=== PATIENT | female | born 1980 | race African-American/Black ===

== ENCOUNTER 2017-01-09 11:15 | Emergency (ER) | payer MEDICAID ==
[2017-01-09] MEDS ORDERED: Sodium Chloride 0.9% 2.5 ML Syringe FLUSH PRN (11:46)
[2017-01-09] MEDS ORDERED: Sodium Chloride 0.9% 10 ML Syringe FLUSH PRN (11:46)
[2017-01-09] MEDS ORDERED: Sodium Chloride 0.9% 1,000 ML IV ONE (11:47)
[2017-01-09] MEDS ORDERED: Ketorolac 30 MG/ML SDV IVPUSH ONE (11:47)
[2017-01-09 11:48] VITALS: BP 156/79
--- NOTE | 2017-01-09 11:52 | EDM.PDOC ---
ED HPI GENERAL MEDICAL PROBLEM - General Chief Complaint: Abdominal Pain Stated Complaint: RIGHT SIDE PAIN Time Seen by Provider: 01/09/17 11:24 - History of Present Illness INITIAL COMMENTS - FREE TEXT/NARRATIVE: HISTORY AND PHYSICAL: History of present illness: The patient is a 36-year-old female with a history of kidney stones in the past and no gynecologic or GI history and presents with 2 days of right-sided abdominal and flank pain. The patient states it started gradually more and her flank area and then started radiating to her right upper and right lower abdomen. She started having concurrent vaginal spotting despite having a period on December 29. She states her periods are regular but the one on December 29 was search director than usual. She has no history of ovarian cysts STDs or STD risks and is not currently sexually active. She states she does have discomfort at the end of urination but no hematuria and the pain she describes as more of a cramping squeezing like. She also says that she has had some associated epigastric burning which she thought was some heartburn and she has tried [id number] ibuprofen and Erika-Vinton and Pepto-Bismol over the last 2 days without relief. She says she feels hot and sweaty but she does not have a temperature. She has no chest pain or shortness of breath and no upper respiratory symptoms. The patient denies any food intolerance in the past but does also state that she has had loose stools over the last several days without black or bloody stools. She does have a history of diarrhea and her medical history on the computer but denies GI history per se The patient tells nursing that she had a nuvaring in place which she removed 2 days ago without complication--she says that she was not scheduled to remove it until the end of this month but opted to remove it early because she had had a dark colored menstrual cycle earlier in the month and she started having this pain and she thought that potentially it was causing an infection. She has had no vaginal discharge preceding that that was abnormal and had no fever Review of systems: As per history of present illness and below otherwise all systems reviewed and negative. Past medical history: As per history of present illness and as reviewed below otherwise noncontributory. Surgical history: As per history of present illness and as reviewed below otherwise noncontributory. Social history: No reported history of drug or alcohol abuse. Family history: As per history of present illness and as reviewed below otherwise noncontributory. Physical exam: Gen.: Well-developed overweight female who is nontoxic and speaking clearly and easily and moves easily in the ED without distress HEENT: Atraumatic, normocephalic, pupils reactive, negative for conjunctival pallor or scleral icterus, mucous membranes moist, throat clear, neck supple, nontender, trachea midline. Lungs: Clear to auscultation, breath sounds equal bilaterally, chest nontender. Heart: S1S2, regular rate and rhythm no overt murmurs Abdomen: Soft, nondistended, bowel sounds are slightly hypoactive, there is tenderness in the epigastrium right upper right mid and right lower quadrants without rebound or guarding and there is no left-sided tenderness. Negative for masses or hepatosplenomegaly. Negative for costovertebral tenderness. Pelvis: Stable nontender. Genitourinary: Patient deferred the exam she has had no vaginal discharge and no STD risks Rectal: Deferred. Extremities: Atraumatic, negative for cords or calf pain. Neurovascular unremarkable. Neuro: Awake, alert, oriented. Cranial nerves II through XII unremarkable. Cerebellum unremarkable. Motor and sensory unremarkable throughout. Exam nonfocal. Diagnostics: CBC CMP amylase lipase UA UCG CT scan of the abdomen and pelvis Therapeutics: IV fluids Toradol rocephin [place] All testing results were discussed with the patient and she is aware of the need for hydration antibiotics and close follow-up. I have offered her pelvic exam due to her recent removal of her NuvaRing she would like to defer that at this time as the results more point to a urinary source of her problems. I will give her follow-up information and have advised on reasons to return to the ED Impression: Right pyelonephritis Definitive disposition and diagnosis as appropriate pending reevaluation and review of above. right upper abd Pain Score (Numeric/FACES): 6 - Related Data Allergies Allergy/AdvReac Type Severity Reaction Status Date / Time iodine Allergy Hives Verified 01/09/17 11:33 latex Allergy Shortness Verified 01/09/17 11:33 of Breath milk Allergy Other Verified 01/09/17 11:33 dust Allergy Shortness Uncoded 01/09/17 11:33 of Breath Home Meds: Home Meds Citalopram Hydrobromide [Celexa] 40 mg PO DAILY 01/09/17 [History] Zopitan 5 mg PO DAILY 01/09/17 [History] Past Medical History - Past Health History Medical/Surgical History: Denies Medical/Surgical History Cardiovascular History: Reports: None Respiratory History: Reports: None Other OB/BYN History: CSx1 Psychiatric History: Reports: None - Infectious Disease History Infectious Disease History: Reports: None - Past Surgical History Female Surgical History: Reports: Section Social & Family History - Family History Family Medical History: Noncontributory - Tobacco Use Smoking Status *Q: Current Every Day Smoker Years of Tobacco use: 26 Packs/Tins Daily: 1 - Alcohol Use Days Per Week of Alcohol Use: 0 Number of Drinks Per Day: 1 Total Drinks Per Week: 0 - Recreational Drug Use Recreational Drug Use: No ED ROS GENERAL - Review of Systems Review Of Systems: ROS reveals no pertinent complaints other than HPI. (See dictation) ED EXAM, GENERAL - Physical Exam Exam: See Below (See dictation) Course - Vital Signs Last Recorded V/S: Last Vital Signs Temp 37.0 C 01/09/17 11:37 Pulse 83 01/09/17 11:37 Resp 18 01/09/17 11:37 BP 156/79 H 01/09/17 11:37 Pulse Ox 100 01/09/17 11:37 - Orders/Labs/Meds Orders: Active Orders 24 hr Category Date Time Status Sodium Chloride 0.9% [Saline Flush] Med 01/09/17 11:46 Active 10 ml FLUSH ASDIRECTED PRN Sodium Chloride 0.9% [Saline Flush] Med 01/09/17 11:46 Active 2.5 ml FLUSH ASDIRECTED PRN Saline Lock Insert [OM.PC] Stat Oth 01/09/17 11:45 Ordered Medication Orders Sodium Chloride (Saline Flush) 10 ml FLUSH ASDIRECTED PRN PRN Reason: Keep Vein Open Sodium Chloride (Saline Flush) 2.5 ml FLUSH ASDIRECTED PRN PRN Reason: Keep Vein Open Labs: Laboratory Tests 01/09/17 01/09/17 01/09/17 Range/Units 11:47 11:47 11:47 WBC 14.17 H (4.0-11.0) K/uL RBC 4.27 L (4.30-5.90) M/uL Hgb 11.9 L (12.0-16.0) g/dL Hct 35.9 L (36.0-46.0) % MCV 84.1 (80.0-98.0) fL MCH 27.9 (27.0-32.0) pg MCHC 33.1 (31.0-37.0) g/dL RDW Std Deviation 44.6 (28.0-62.0) fl RDW Coeff of Kang 15 (11.0-15.0) % Plt Count 365 (150-400) K/uL MPV 9.30 (7.40-12.00) fL Neut % (Auto) 65.0 (48.0-80.0) % Lymph % (Auto) 22.4 (16.0-40.0) % [place] % (Auto) 11.2 (0.0-15.0) % Eos % (Auto) 1.3 (0.0-7.0) % Baso % (Auto) 0.1 (0.0-1.5) % Neut # (Auto) 9.2 H (1.4-5.7) K/uL Lymph # (Auto) 3.2 H (0.6-2.4) K/uL [place] # (Auto) 1.6 H (0.0-0.8) K/uL Eos # (Auto) 0.2 (0.0-0.7) K/uL Baso # (Auto) 0.0 (0.0-0.1) K/uL Nucleated RBC % 0.0 /100WBC Nucleated RBCs # 0 K/uL Sodium 141 (136-146) mmol/L Potassium 4.2 (3.5-5.1) mmol/L Chloride 107 (98-110) mmol/L Carbon Dioxide 27 (21-31) mmol/L BUN 10 (6.0-23.0) mg/dL Creatinine 0.8 (0.6-1.5) mg/dL Est Cr Clr Drug Dosing 114.35 mL/min Estimated GFR (MDRD) > 60.0 ml/min Glucose 88 (60-110) mg/dL Calcium 9.1 (8.8-10.8) mg/dL Total Bilirubin 0.4 (0.1-1.5) mg/dL AST 9 (5-40) IU/L ALT 8 (8-54) IU/L Alkaline Phosphatase 93 (40-150) Total Protein 7.3 (6.0-8.0) g/dL Albumin 3.6 (3.5-5.0) g/dL Globulin 3.7 H (2.0-3.5) g/dL Albumin/Globulin Ratio 1.0 L (1.3-2.8) Amylase 41 (10-90) U/L Lipase < 8 (7-80) U/L Urine Color Urine Appearance Urine pH (5.0-8.0) Ur Specific [place] (1.001-1.035) Urine Protein (NEGATIVE) mg/dL Urine Glucose (UA) (NEGATIVE) mg/dL Urine Ketones (NEGATIVE) mg/dL Urine Occult Blood (NEGATIVE) Urine Nitrite (NEGATIVE) Urine Bilirubin (NEGATIVE) Urine Urobilinogen (<2.0) EU/dL Ur Leukocyte Esterase (NEGATIVE) Urine RBC (0-2/HPF) Urine WBC (0-5/HPF) Ur Epithelial Cells (NONE-FEW) Urine Bacteria (NEGATIVE) Urine Mucus (NONE-MOD) Urine HCG, Qual NEGATIVE (NEGATIVE) 01/09/17 Range/Units 11:47 WBC (4.0-11.0) K/uL RBC (4.30-5.90) M/uL Hgb (12.0-16.0) g/dL Hct (36.0-46.0) % MCV (80.0-98.0) fL MCH (27.0-32.0) pg MCHC (31.0-37.0) g/dL RDW Std Deviation (28.0-62.0) fl RDW Coeff of Kang (11.0-15.0) % Plt Count (150-400) K/uL MPV (7.40-12.00) fL Neut % (Auto) (48.0-80.0) % Lymph % (Auto) (16.0-40.0) % [place] % (Auto) (0.0-15.0) % Eos % (Auto) (0.0-7.0) % Baso % (Auto) (0.0-1.5) % Neut # (Auto) (1.4-5.7) K/uL Lymph # (Auto) (0.6-2.4) K/uL [place] # (Auto) (0.0-0.8) K/uL Eos # (Auto) (0.0-0.7) K/uL Baso # (Auto) (0.0-0.1) K/uL Nucleated RBC % /100WBC Nucleated RBCs # K/uL Sodium (136-146) mmol/L Potassium (3.5-5.1) mmol/L Chloride (98-110) mmol/L Carbon Dioxide (21-31) mmol/L BUN (6.0-23.0) mg/dL Creatinine (0.6-1.5) mg/dL Est Cr Clr Drug Dosing mL/min Estimated GFR (MDRD) ml/min Glucose (60-110) mg/dL Calcium (8.8-10.8) mg/dL Total Bilirubin (0.1-1.5) mg/dL AST (5-40) IU/L ALT (8-54) IU/L Alkaline Phosphatase (40-150) Total Protein (6.0-8.0) g/dL Albumin (3.5-5.0) g/dL Globulin (2.0-3.5) g/dL Albumin/Globulin Ratio (1.3-2.8) Amylase (10-90) U/L Lipase (7-80) U/L Urine Color YELLOW Urine Appearance CLOUDY Urine pH 6.5 (5.0-8.0) Ur Specific [place] 1.025 (1.001-1.035) Urine Protein 100 (NEGATIVE) mg/dL Urine Glucose (UA) NEGATIVE (NEGATIVE) mg/dL Urine Ketones NEGATIVE (NEGATIVE) mg/dL Urine Occult Blood LARGE H (NEGATIVE) Urine Nitrite POSITIVE H (NEGATIVE) Urine Bilirubin NEGATIVE (NEGATIVE) Urine Urobilinogen 0.2 (<2.0) EU/dL Ur Leukocyte Esterase LARGE (NEGATIVE) Urine RBC 10-15 (0-2/HPF) Urine WBC TO NUMEROUS TO COUNT H (0-5/HPF) Ur Epithelial Cells FEW (NONE-FEW) Urine Bacteria 4+ H (NEGATIVE) Urine Mucus LIGHT (NONE-MOD) Urine HCG, Qual (NEGATIVE) Meds: Medications Generic Name Dose Route Start Last Admin Trade Name Freq PRN Reason Stop Dose Admin Sodium Chloride 10 ml 01/09/17 11:46 Saline Flush FLUSH ASDIRECTED PRN Keep Vein Open Sodium Chloride 2.5 ml 01/09/17 11:46 Saline Flush FLUSH ASDIRECTED PRN Keep Vein Open Discontinued Medications Generic Name Dose Route Start Last Admin Trade Name Jonathan PRN Reason Stop Dose Admin Sodium Chloride 1,000 mls @ 999 mls/hr 01/09/17 11:47 01/09/17 12:03 Normal Saline IV 01/09/17 12:47 999 mls/hr STAT ONE Administration Ceftriaxone Sodium/Dextrose 1 50 mls @ 100 mls/hr 01/09/17 13:00 01/09/17 13: 22 gm/ Premix IV 01/09/17 13:29 100 mls/hr ONETIME ONE Administration Ketorolac Tromethamine 30 mg 01/09/17 11:47 01/09/17 12:03 Toradol IVPUSH 01/09/17 11:48 30 mg ONETIME ONE Administration Departure - Departure Time of Disposition: 13:51 Disposition: Home, Self-Care 01 Condition: Good Clinical Impression: Pyelonephritis - Discharge Information Forms: ED Department Discharge Additional Instructions: The following information is given to patients seen in the emergency department who are being discharged to home. This information is to outline your options for follow-up care. We provide all patients seen in our emergency department with a follow-up referral. The need for follow-up, as well as the timing and circumstances, are variable depending upon the specifics of your emergency department visit. If you don't have a primary care physician on staff, we will provide you with a referral. We always advise you to contact your personal physician following an emergency department visit to inform them of the circumstance of the visit and for follow-up with them and/or the need for any referrals to a consulting specialist. The emergency department will also refer you to a specialist when appropriate. This referral assures that you have the opportunity for followup care with a specialist. All of these measure are taken in an effort to provide you with optimal care, which includes your followup. Under all circumstances we always encourage you to contact your private physician who remains a resource for coordinating your care. When calling for followup care, please make the office aware that this follow-up is from your recent emergency room visit. If for any reason you are refused follow-up, please contact the [facility] emergency department at and ask to speak to the emergency department charge nurse. [facility] [address] [place] [address] [facility] Primary care- Internal Medicine and Family [facility] [address] [place] [id number] Push hydration and take antibiotics until they are finished, please start them this evening. Return to ER as needed and as discussed. Use [id number] Tylenol or ibuprofen for pain and use the stronger pain medication as needed. Please call and follow-up with your provider at [facility] or one of our providers in our clinic. - My Orders Last 24 Hours: My Active Orders 01/09/17 11:45 Saline Lock Insert [OM.PC] Stat 01/09/17 11:46 Sodium Chloride 0.9% [Saline Flush] 10 ml FLUSH ASDIRECTED PRN Sodium Chloride 0.9% [Saline Flush] 2.5 ml FLUSH ASDIRECTED PRN - Assessment/Plan Last 24 Hours: My Active Orders 01/09/17 11:45 Saline Lock Insert [OM.PC] Stat 01/09/17 11:46 Sodium Chloride 0.9% [Saline Flush] 10 ml FLUSH ASDIRECTED PRN Sodium Chloride 0.9% [Saline Flush] 2.5 ml FLUSH ASDIRECTED PRN
[2017-01-09 12:29] LABS: CHLORIDE,CL 107 mmol/L (98-110); SODIUM,NA 141 mmol/L (136-146)
[2017-01-09] MEDS ORDERED: cefTRIAXone 1 GM in Premix Bag 1 BAG IV ONE (13:00)
--- NOTE | 2017-01-09 13:36 | CT ---
CT of the abdomen and pelvis without contrast. HISTORY: Pain TECHNIQUE: Axial CT images were obtained of the abdomen and pelvis without contrast. Coronal and sag ittal reconstructions obtained. FINDINGS: The lung bases are clear, no pleural effusion. The liver, spleen, adrenal glands, and pancreas appear unremarkable for noncontrast examination. The gallbladder appears normal. There is no bulky retroperitoneal lymphadenopathy. No abdominal ascite s. Punctate nonobstructing right renal stones versus inspissated urine. There is a trace prominence of the right renal collecting system and right ureter without a definite calcification noted along the course of the right ureter. The large and small bowel are normal in caliber without evidence of obstruction. The appendix appear s normal. There is no bulky pelvic lymphadenopathy. No free fluid. No free air. The urinary bladder appears normal. Small uterine fibroids. Moderate osteitis pubis. IMPRESSION: 1. Trace prominence of the right renal collecting system and ureter. This could represent an underly ing UTI or possibly a recently passed stone.
[2017-01-09] MEDS ORDERED: Acetaminophen/HYDROcodone 325-7.5 MG Tab PO ONE (13:55)
== END 2017-01-09 14:25 | disposition home or self-care (01) ==
LOC: MW.ED 11:15
DX: N12 Tubulo-interstitial nephritis, not specified as acute or chronic (principal); Z79.899 Other long term (current) drug therapy; F17.210 Nicotine dependence, cigarettes, uncomplicated; Z88.8 Allergy status to other drugs, medicaments and biological substances; Z91.040 Latex allergy status; Z91.011 Allergy to milk products; Z87.442 Personal history of urinary calculi
CPT/HCPCS: 36415; 74176; 80053; 81001; 81025; 82150; 83690; 85025; 87086; 96361; 96365; 96375; 99284; J0696; J1885; J7040; 87088; 87186; 99283

== ENCOUNTER 2017-01-13 18:49 | Emergency (ER) | payer MEDICAID ==
[2017-01-13] MEDS ORDERED: Ketorolac 30 MG/ML SDV IVPUSH ONE (19:14)
[2017-01-13] MEDS ORDERED: Sodium Chloride 0.9% 1,000 ML IV ONE (19:16)
[2017-01-13] MEDS ORDERED: cefTRIAXone 1 GM in Premix Bag 1 BAG IV ONE (19:19)
--- NOTE | 2017-01-13 19:20 | EDM.PDOC ---
ED HPI GENERAL MEDICAL PROBLEM - General Chief Complaint: Abdominal Pain Stated Complaint: ABDOMINAL PAIN FROM KIDNEY INFECTION Time Seen by Provider: 01/13/17 19:07 Source of Information: Reports: Patient History Limitations: Reports: No Limitations - History of Present Illness INITIAL COMMENTS - FREE TEXT/NARRATIVE: HISTORY AND PHYSICAL: [] 36-year-old female with history of kidney stones presented to the emergency room 4 days ago for abdominal pain and was treated for pyelonephritis History of Present Illness: [] Patient presents today with pain that had been improving now is increasing again. She has pain to the right groin area X and into her back denies any chest pain shortness of breath or heart palpitations. Patient has infant that is nursing also bottle-fed denies any vaginal discharge Review of Systems: As per history of present illness and below otherwise all systems reviewed and negative. Past medical history: As per history of present illness and as reviewed below otherwise noncontributory. Surgical history: As per history of present illness and as reviewed below otherwise noncontributory. Social history: No reported history of drug or alcohol abuse. Family history: As per history of present illness and as reviewed below otherwise noncontributory. Physical exam: Alert and oriented female speaking in full sentences does not look to be in acute distress HEENT: Atraumatic, normocehpalic, pupils reactive, negative for conjunctival pallor or scleral icterus, mucous membranes moist, throat clear, neck supple, nontender, trachea midline. Lungs: Clear to auscultation, breath sounds equal bilaterally, chest non tender. Heart: S1S2, regular, negative for clicks, rubs, or JVD. Abdomen: Soft, nondistended, tender to the right groin area extending to her lower back. Negative for masses or hepatossplenmegaly. Positive for costovertebral tenderness on the right. Pelvis: Stable nontender. Genitourinary: Deferred. Rectal: Deferred Extremities: Atraumatic, negative for cords or calf pain. Neurovascular unremarkable. Neuro: Awake, alert, oriented. Cranial nerves II through XII unremarkable. Cerebellum unremarkable. Motor and sensory unremarkable throughout. Exam nonfocal. Discussed with patient that her urinalysis isn't improving we'll give her an injection of Toradol and Rocephin. As things are progressing well we'll have her keep on the same antibiotics to avoid any resistance in the future. Diagnostics: [Urinalysis that is improving] Therapeutics: [Rocephin IM Toradol IM/] Impression: [Pyelonephritis] Plan: [Continue with the medication that you have been taking Follow-up with your primary care next week] Definitive disposition and diagnosis as appropriate pending reevaluation and review of above. Onset: Gradual Duration: Day(s):, Getting Worse Location: Reports: Abdomen, Pelvis Quality: Reports: Same as Previous Episode Severity: Moderate Improves with: Reports: None abdominla pain Pain Score (Numeric/FACES): 7 - Related Data Allergies Allergy/AdvReac Type Severity Reaction Status Date / Time iodine Allergy Hives Verified 01/13/17 19:03 latex Allergy Shortness Verified 01/13/17 19:03 of Breath milk Allergy Other Verified 01/13/17 19:03 dust Allergy Shortness Uncoded 01/13/17 19:03 of Breath Home Meds: Home Meds Citalopram Hydrobromide [Celexa] 40 mg PO DAILY 01/09/17 [History] Zopitan 5 mg PO DAILY 01/09/17 [History] Past Medical History - Past Health History Medical/Surgical History: Denies Medical/Surgical History Cardiovascular History: Reports: None Respiratory History: Reports: None Other OB/BYN History: CSx1 Psychiatric History: Reports: None - Infectious Disease History Infectious Disease History: Reports: None - Past Surgical History Female Surgical History: Reports: Section Social & Family History - Family History Family Medical History: Noncontributory - Tobacco Use Smoking Status *Q: Current Every Day Smoker Years of Tobacco use: 26 Packs/Tins Daily: 1 - Alcohol Use Days Per Week of Alcohol Use: 0 Number of Drinks Per Day: 1 Total Drinks Per Week: 0 - Recreational Drug Use Recreational Drug Use: No ED ROS GENERAL - Review of Systems Review Of Systems: ROS reveals no pertinent complaints other than HPI. ED EXAM, RENAL/ - Physical Exam Exam: See Below (See dictation) Course - Vital Signs Last Recorded V/S: Last Vital Signs Temp 36.1 C 01/13/17 19:03 Pulse 82 01/13/17 19:03 Resp 16 01/13/17 19:03 BP 126/75 01/13/17 19:03 Pulse Ox 98 01/13/17 19:03 - Orders/Labs/Meds Labs: Laboratory Tests 01/13/17 01/13/17 Range/Units 19:10 19:10 Urine Color YELLOW Urine Appearance CLEAR Urine pH 6.0 (5.0-8.0) Ur Specific [place] 1.020 (1.001-1.035) Urine Protein NEGATIVE (NEGATIVE) mg/dL Urine Glucose (UA) NEGATIVE (NEGATIVE) mg/dL Urine Ketones TRACE H (NEGATIVE) mg/dL Urine Occult Blood TRACE-LYSED (NEGATIVE) Urine Nitrite NEGATIVE (NEGATIVE) Urine Bilirubin NEGATIVE (NEGATIVE) Urine Urobilinogen 0.2 (<2.0) EU/dL Ur Leukocyte Esterase TRACE (NEGATIVE) Urine RBC 0-2 (0-2/HPF) Urine WBC 0-2 (0-5/HPF) Ur Epithelial Cells MODERATE (NONE-FEW) Urine Bacteria FEW (NEGATIVE) Urine Yeast OCCASIONAL Urine HCG, Qual Cancelled Meds: Medications Discontinued Medications Generic Name Dose Route Start Last Admin Trade Name Freq PRN Reason Stop Dose Admin Sodium Chloride 1,000 mls @ 999 mls/hr 01/13/17 19:16 Normal Saline IV 01/13/17 20:16 STAT ONE Ceftriaxone Sodium/Dextrose 1 50 mls @ 100 mls/hr 01/13/17 19:19 gm/ Premix IV 01/13/17 19:48 ONETIME ONE Ceftriaxone Sodium 1,000 mg/ 4 mls @ 4 mls/sec 01/13/17 19:37 01/13/17 19:50 Lidocaine HCl IM 01/13/17 19:38 4 mls/sec ONETIME ONE Administration Ketorolac Tromethamine 30 mg 01/13/17 19:14 Toradol IVPUSH 01/13/17 19:15 ONETIME ONE Ketorolac Tromethamine 60 mg 01/13/17 19:36 Toradol IM 01/13/17 19:37 ONETIME ONE Departure - Departure Time of Disposition: 19:55 Disposition: Home, Self-Care 01 Condition: Good Clinical Impression: Pyelonephritis - Discharge Information Forms: ED Department Discharge Additional Instructions: The following information is given to patients seen in the emergency department who are being discharged to home. This information is to outline your options for follow-up care. We provide all patients seen in our emergency department with a follow-up referral. The need for follow-up, as well as the timing and circumstances, are variable depending upon the specifics of your emergency department visit. If you don't have a primary care physician on staff, we will provide you with a referral. We always advise you to contact your personal physician following an emergency department visit to inform them of the circumstance of the visit and for follow-up with them and/or the need for any referrals to a consulting specialist. The emergency department will also refer you to a specialist when appropriate. This referral assures that you have the opportunity for followup care with a specialist. All of these measure are taken in an effort to provide you with optimal care, which includes your followup. Under all circumstances we always encourage you to contact your private physician who remains a resource for coordinating your care. When calling for followup care, please make the office aware that this follow-up is from your recent emergency room visit. If for any reason you are refused follow-up, please contact the [facility] emergency department at and asked to speak to the emergency department charge nurse. Continue with your present antibiotic Follow up with your primary care provider if condition recurs consider seeing Dr. Shrestha, urologist.
[2017-01-13] MEDS ORDERED: Ketorolac 60 MG/2 ML SDV IM ONE (19:36)
[2017-01-13] MEDS ORDERED: cefTRIAXone 1,000 MG in Lidocaine 1% 4 ML IM ONE (19:37)
[2017-01-13 20:14] VITALS: BP 119/73
== END 2017-01-13 20:14 | disposition home or self-care (01) ==
LOC: MW.ED 18:49
DX: N12 Tubulo-interstitial nephritis, not specified as acute or chronic (principal); F17.210 Nicotine dependence, cigarettes, uncomplicated; Z91.040 Latex allergy status; Z91.011 Allergy to milk products; Z79.899 Other long term (current) drug therapy
CPT/HCPCS: 81001; 96372; 99284; J0696; J1885

== ENCOUNTER 2018-02-19 21:04 | Emergency (ER) | payer MEDICAID ==
[2018-02-19] MEDS ORDERED: Ondansetron 4 MG/2 ML SDV IVPUSH ONE (22:36)
[2018-02-19] MEDS ORDERED: Sodium Chloride 0.9% 1,000 ML IV ONE (22:36)
--- NOTE | 2018-02-19 22:39 | EDM.PDOC ---
ED HPI GENERAL MEDICAL PROBLEM - General Chief Complaint: Gastrointestinal Problem Stated Complaint: FLU LIKE SYMTOMS Time Seen by Provider: 02/19/18 22:32 - History of Present Illness INITIAL COMMENTS - FREE TEXT/NARRATIVE: HISTORY AND PHYSICAL: History of present illness: Patient 37-year-old black female presents concerned vomiting diarrhea and dizziness she's had this over the last 3-4 days she denies fever chills abdominal pain or other concern. Review of systems: As per history of present illness and below otherwise all systems reviewed and negative. Past medical history: As per history of present illness and as reviewed below otherwise noncontributory. Surgical history: As per history of present illness and as reviewed below otherwise noncontributory. Social history: No reported history of drug or alcohol abuse. Family history: As per history of present illness and as reviewed below otherwise noncontributory. Physical exam: HEENT: Atraumatic, normocephalic, pupils reactive, negative for conjunctival pallor or scleral icterus, mucous membranes dry, throat clear, neck supple, nontender, trachea midline. Lungs: Clear to auscultation, breath sounds equal bilaterally, chest nontender. Heart: S1S2, regular, negative for clicks, rubs, or JVD. Abdomen: Soft, nondistended, nontender. Negative for masses or hepatosplenomegaly. Negative for costovertebral tenderness. Pelvis: Stable nontender. Genitourinary: Deferred. Rectal: Deferred. Extremities: Atraumatic, negative for cords or calf pain. Neurovascular unremarkable. Neuro: Awake, alert, oriented. Cranial nerves II through XII unremarkable. Cerebellum unremarkable. Motor and sensory unremarkable throughout. Exam nonfocal. Diagnostics: CBC CMP UA hCG Therapeutics: Saline 1 L bolus Zofran 4 mg IV Impression: #1 vomiting/diarrhea with dehydration Definitive disposition and diagnosis as appropriate pending reevaluation and review of above. - Related Data Allergies Allergy/AdvReac Type Severity Reaction Status Date / Time iodine Allergy Hives Verified 01/13/17 19:03 latex Allergy Shortness Verified 01/13/17 19:03 of Breath milk Allergy Other Verified 01/13/17 19:03 dust Allergy Shortness Uncoded 01/13/17 19:03 of Breath Home Meds: Home Meds Citalopram Hydrobromide [Celexa] 40 mg PO DAILY 01/09/17 [History] Zopitan 5 mg PO DAILY 01/09/17 [History] Past Medical History - Past Health History Medical/Surgical History: Denies Medical/Surgical History HEENT History: Reports: None Cardiovascular History: Reports: None Respiratory History: Reports: None Gastrointestinal History: Reports: None Genitourinary History: Reports: None 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 Musculoskeletal History: Reports: None Neurological History: Reports: None Psychiatric History: Reports: None Endocrine/Metabolic History: Reports: None Hematologic History: Reports: None Immunologic History: Reports: None Oncologic (Cancer) History: Reports: None Dermatologic History: Reports: None - Infectious Disease History Infectious Disease History: Reports: None - Past Surgical History Female Surgical History: Reports: Section Social & Family History - Family History Family Medical History: Noncontributory - Caffeine Use Caffeine Use: Reports: Coffee, Energy Drinks, Soda, Tea ED ROS GENERAL - Review of Systems Review Of Systems: ROS reveals no pertinent complaints other than HPI. ED EXAM, GENERAL - Physical Exam Exam: See Below (Dictation) Course - Orders/Labs/Meds Orders: Active Orders 24 hr Category Date Time Status CBC WITH AUTO DIFF [HEME] Stat Lab 02/19/18 22:36 Ordered COMPREHENSIVE METABOLIC PN,CMP [CHEM] Stat Lab 02/19/18 22:36 Ordered HCG QUALITATIVE,SERUM [CHEM] Stat Lab 02/19/18 22:36 Ordered UA W/MICROSCOPIC [URIN] Stat Lab 02/19/18 22:36 Ordered Ondansetron [Zofran] Med 02/19/18 22:36 Once 4 mg IVPUSH ONETIME ONE Sodium Chloride 0.9% [Normal Saline] 1,000 ml Med 02/19/18 22:36 Ordered IV STAT Departure - Departure Time of Disposition: 22:38 Disposition: Home, Self-Care 01 Condition: Good Clinical Impression: Vomiting, Dehydration, Diarrhea - Discharge Information *PRESCRIPTION DRUG MONITORING PROGRAM REVIEWED*: Not Applicable *COPY OF PRESCRIPTION DRUG MONITORING REPORT IN PATIENT JAMI: Not Applicable Referrals: PCP,None [Primary Care Provider] - Additional Instructions: The following information is given to patients seen in the emergency department who are being discharged to home. This information is to outline your options for follow-up care. We provide all patients seen in our emergency department with a follow-up referral. The need for follow-up, as well as the timing and circumstances, are variable depending upon the specifics of your emergency department visit. If you don't have a primary care physician on staff, we will provide you with a referral. We always advise you to contact your personal physician following an emergency department visit to inform them of the circumstance of the visit and for follow-up with them and/or the need for any referrals to a consulting specialist. The emergency department will also refer you to a specialist when appropriate. This referral assures that you have the opportunity for followup care with a specialist. All of these measure are taken in an effort to provide you with optimal care, which includes your followup. Under all circumstances we always encourage you to contact your private physician who remains a resource for coordinating your care. When calling for followup care, please make the office aware that this follow-up is from your recent emergency room visit. If for any reason you are refused follow-up, please contact the [facility] emergency department at and asked to speak to the emergency department charge nurse. [facility] [address] [place] [id number] Clear liquids as discussed push fluids follow-up private medical doctor in her clinic above as needed as discussed and return as needed as discussed - My Orders Last 24 Hours: My Active Orders 02/19/18 22:36 CBC WITH AUTO DIFF [HEME] Stat COMPREHENSIVE METABOLIC PN,CMP [CHEM] Stat HCG QUALITATIVE,SERUM [CHEM] Stat UA W/MICROSCOPIC [URIN] Stat Ondansetron [Zofran] 4 mg IVPUSH ONETIME ONE Sodium Chloride 0.9% [Normal Saline] 1,000 ml IV STAT - Assessment/Plan Last 24 Hours: My Active Orders 02/19/18 22:36 CBC WITH AUTO DIFF [HEME] Stat COMPREHENSIVE METABOLIC PN,CMP [CHEM] Stat HCG QUALITATIVE,SERUM [CHEM] Stat UA W/MICROSCOPIC [URIN] Stat Ondansetron [Zofran] 4 mg IVPUSH ONETIME ONE Sodium Chloride 0.9% [Normal Saline] 1,000 ml IV STAT
[2018-02-19 23:18] LABS: CHLORIDE,CL 106 mmol/L (98-107); SODIUM,NA 138 mmol/L (136-145)
[2018-02-19] MEDS ORDERED: Ondansetron 4 MG/2 ML SDV ONE (23:26)
[2018-02-20 00:24] VITALS: BP 168/82
== END 2018-02-20 00:26 | disposition home or self-care (01) ==
LOC: MW.ED 21:04
DX: E86.0 Dehydration (principal); R11.10 Vomiting, unspecified; R19.7 Diarrhea, unspecified; Z79.899 Other long term (current) drug therapy; Z88.8 Allergy status to other drugs, medicaments and biological substances; Z91.011 Allergy to milk products; Z91.09 Other allergy status, other than to drugs and biological substances; Z91.040 Latex allergy status
CPT/HCPCS: 36415; 80053; 81001; 84703; 85025; 96361; 96374; 99284; J2405; J7040

== ENCOUNTER 2018-07-07 02:28 | Emergency (ER) | payer MEDICAID ==
[2018-07-07] MEDS ORDERED: Ketorolac 60 MG/2 ML SDV IM ONE (03:15)
[2018-07-07] MEDS ORDERED: Acetaminophen/HYDROcodone 325-5 MG Tab PO ONE (03:15)
--- NOTE | 2018-07-07 03:22 | EDM.PDOC ---
ED HPI GENERAL MEDICAL PROBLEM - General Chief Complaint: General Stated Complaint: PAIN RADIATING FROM LEFT SHOULDER ON DOWN Time Seen by Provider: 07/07/18 03:06 - History of Present Illness INITIAL COMMENTS - FREE TEXT/NARRATIVE: HISTORY AND PHYSICAL: History of present illness: The patient is a 37-year-old female who presents with complaints of body aches and headache that started earlier today but seems to progress well she was at work tonight. She said she had diffuse body aches but then will she was at work tonight it seemed to be more localized to her neck bilaterally and then traveling down her arms and down her entire spine. She says that she feels like she's hunching her shoulders and holding her head in a sitting position due to discomfort. She has no weakness in her extremities and no recent trauma. She is not taking anything for this pain. Review of systems: As per history of present illness and below otherwise all systems reviewed and negative. Past medical history: As per history of present illness and as reviewed below otherwise noncontributory. Surgical history: As per history of present illness and as reviewed below otherwise noncontributory. Social history: No reported history of drug or alcohol abuse. Family history: As per history of present illness and as reviewed below otherwise noncontributory. Physical exam: General: Well-developed well-nourished overweight female who is nontoxic and holds her head relatively stiffly and does not move her upper extremities more than just 10-20 due to discomfort. She has nontoxic and vital signs are slightly HEENT: Atraumatic, normocephalic, negative for conjunctival pallor or scleral icterus, mucous membranes moist, throat clear, neck supple, nontender, trachea midline. There are no midline step-offs tenderness defects of the cervical spine but there is diffuse tenderness to palpation of the trapezius muscles bilaterally and extending into the cervical para spinal musculature and extending down her thoracic spine. The patient will not abduct her arm very much even possibly due to discomfort in her neck muscles. Lungs: Clear to auscultation, breath sounds equal bilaterally, chest nontender. Heart: S1S2, regular rate and rhythm no overt murmurs Abdomen: Soft, nondistended, nontender. NABS Pelvis: Deferred Genitourinary: Deferred. Rectal: Deferred. Extremities: Atraumatic, negative for cords or calf pain. Neurovascular unremarkable. No palpable defects or deformities Neuro: Awake, alert, oriented. Cranial nerves II through XII unremarkable. Cerebellum unremarkable. Motor and sensory unremarkable throughout. Exam nonfocal. Diagnostics: [] Therapeutics: Norflex Toradol [place] Impression: Bilateral cervical paraspinal muscle pain and trapezius spasm/upper back and neck musculoskeletal pain Definitive disposition and diagnosis as appropriate pending reevaluation and review of above. Left Upper Shoulder Pain Score (Numeric/FACES): 7 - Related Data Allergies Allergy/AdvReac Type Severity Reaction Status Date / Time iodine Allergy Hives Verified 07/07/18 03:00 latex Allergy Shortness Verified 07/07/18 03:00 of Breath milk Allergy Other Verified 07/07/18 03:00 dust Allergy Shortness Uncoded 07/07/18 03:00 of Breath Home Meds: Home Meds Citalopram Hydrobromide [Celexa] 40 mg PO DAILY 01/09/17 [History] Zopitan 5 mg PO DAILY 01/09/17 [History] buPROPion [Wellbutrin] 300 mg PO DAILY 04/21/18 [History] diphenhydrAMINE [Benadryl] 50 mg PO ONETIME #1 cap 04/21/18 [Rx] Cephalexin [Keflex] 250 mg PO QID 07/07/18 [History] Fluconazole [Diflucan] 150 mg PO ASDIRECTED 07/07/18 [History] metroNIDAZOLE [Metronidazole] 500 mg PO BID 07/07/18 [History] Past Medical History - Past Health History Medical/Surgical History: Denies Medical/Surgical History HEENT History: Reports: None Cardiovascular History: Reports: None Respiratory History: Reports: None Gastrointestinal History: Reports: None Genitourinary History: Reports: None 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 Musculoskeletal History: Reports: None Neurological History: Reports: None Psychiatric History: Reports: Depression Endocrine/Metabolic History: Reports: None Hematologic History: Reports: None Immunologic History: Reports: None Oncologic (Cancer) History: Reports: None Dermatologic History: Reports: None - Infectious Disease History Infectious Disease History: Reports: None - Past Surgical History Head Surgeries/Procedures: Reports: None Female Surgical History: Reports: Section Social & Family History - Family History Family Medical History: Noncontributory - Tobacco Use Smoking Status *Q: Current Every Day Smoker Years of Tobacco use: 29 Packs/Tins Daily: 1 - Caffeine Use Caffeine Use: Reports: None - Alcohol Use Days Per Week of Alcohol Use: 1 Number of Drinks Per Day: 4 Total Drinks Per Week: 4 - Recreational Drug Use Recreational Drug Use: No ED ROS GENERAL - Review of Systems Review Of Systems: ROS reveals no pertinent complaints other than HPI. ED EXAM, GENERAL - Physical Exam Exam: See Below (see dictation) Course - Vital Signs Last Recorded V/S: Last Vital Signs Temp 36.1 C 07/07/18 02:58 Pulse 73 07/07/18 02:58 Resp 20 07/07/18 02:58 BP 122/77 07/07/18 02:58 Pulse Ox 98 07/07/18 02:58 - Orders/Labs/Meds Orders: Active Orders 24 hr Category Date Time Status Acetaminophen/HYDROcodone [Salina 325-5 MG] Med 07/07/18 03:15 Once 1 tab PO ONETIME ONE Ketorolac [Toradol] Med 07/07/18 03:15 Once 60 mg IM ONETIME ONE Orphenadrine [Norflex] Med 07/07/18 03:15 Once 60 mg IM ONETIME ONE Medication Orders Hydrocodone Bitart/Acetaminophen (Salina 325-5 Mg) 1 tab PO ONETIME ONE Stop: 07/07/18 03:16 Ketorolac Tromethamine (Toradol) 60 mg IM ONETIME ONE Stop: 07/07/18 03:16 Orphenadrine Citrate (Norflex) 60 mg IM ONETIME ONE Stop: 07/07/18 03:16 Meds: Medications Generic Name Dose Route Start Last Admin Trade Name Jonathan PRN Reason Stop Dose Admin Hydrocodone Bitart/Acetaminophen 1 tab 07/07/18 03:15 Sal[place] 325-5 Mg PO 07/07/18 03:16 ONETIME ONE Ketorolac Tromethamine 60 mg 07/07/18 03:15 Toradol IM 07/07/18 03:16 ONETIME ONE Orphenadrine Citrate 60 mg 07/07/18 03:15 Norflex IM 07/07/18 03:16 ONETIME ONE Departure - Departure Time of Disposition: 03:20 Disposition: Home, Self-Care 01 Condition: Good Clinical Impression: Musculoskeletal pain, Neck pain Back pain Qualifiers: Back pain location: back pain in unspecified location Chronicity: acute Back pain laterality: bilateral Qualified Code(s): M54.9 - Dorsalgia, unspecified - Discharge Information Referrals: Xavi De Anda MD [Primary Care Provider] - Additional Instructions: The following information is given to patients seen in the emergency department who are being discharged to home. This information is to outline your options for follow-up care. We provide all patients seen in our emergency department with a follow-up referral. The need for follow-up, as well as the timing and circumstances, are variable depending upon the specifics of your emergency department visit. If you don't have a primary care physician on staff, we will provide you with a referral. We always advise you to contact your personal physician following an emergency department visit to inform them of the circumstance of the visit and for follow-up with them and/or the need for any referrals to a consulting specialist. The emergency department will also refer you to a specialist when appropriate. This referral assures that you have the opportunity for followup care with a specialist. All of these measure are taken in an effort to provide you with optimal care, which includes your followup. Under all circumstances we always encourage you to contact your private physician who remains a resource for coordinating your care. When calling for followup care, please make the office aware that this follow-up is from your recent emergency room visit. If for any reason you are refused follow-up, please contact the [facility] emergency department at and ask to speak to the emergency department charge nurse. [facility] Primary care- Internal Medicine and Family [address] [address] Rest and try to alternate ice and heat using the heat before any muscle stretching and specific movements to open up the areas. Use all medications as needed and prescribed. Please call and schedule a follow-up appointment in the clinic for reevaluation and further care and return to ER as needed as discussed. - My Orders Last 24 Hours: My Active Orders 07/07/18 03:15 Acetaminophen/HYDROcodone [Salina 325-5 MG] 1 tab PO ONETIME ONE Ketorolac [Toradol] 60 mg IM ONETIME ONE Orphenadrine [Norflex] 60 mg IM ONETIME ONE - Assessment/Plan Last 24 Hours: My Active Orders 07/07/18 03:15 Acetaminophen/HYDROcodone [Salina 325-5 MG] 1 tab PO ONETIME ONE Ketorolac [Toradol] 60 mg IM ONETIME ONE Orphenadrine [Norflex] 60 mg IM ONETIME ONE
[2018-07-07 03:46] VITALS: BP 122/75
== END 2018-07-07 03:51 | disposition home or self-care (01) ==
LOC: MW.ED 02:28
DX: M54.2 Cervicalgia (principal); M54.6 Pain in thoracic spine; M79.10 Myalgia, unspecified site; F32.9 Major depressive disorder, single episode, unspecified; F17.210 Nicotine dependence, cigarettes, uncomplicated; Z91.040 Latex allergy status; Z91.011 Allergy to milk products; Z88.8 Allergy status to other drugs, medicaments and biological substances; Z79.899 Other long term (current) drug therapy
CPT/HCPCS: 96372; 99283; A9270; J1885; J2360

== ENCOUNTER 2018-07-09 11:50 | Emergency (ER) | payer MEDICAID ==
[2018-07-09] MEDS ORDERED: methylPREDNISolone Sodium Succinate 125 MG/2 ML SDV IM ONE (12:20)
--- NOTE | 2018-07-09 12:21 | EDM.PDOC ---
ED HPI GENERAL MEDICAL PROBLEM - General Chief Complaint: Upper Extremity Injury/Pain Stated Complaint: NECK AND ARM STILL IN PAIN Time Seen by Provider: 07/09/18 12:20 Source of Information: Reports: Patient History Limitations: Reports: No Limitations - History of Present Illness INITIAL COMMENTS - FREE TEXT/NARRATIVE: HISTORY AND PHYSICAL: History of present illness: Patient is a 37-year-old female here with complaint of left arm pain. She was seen in the ED 2 days ago for neck and back pain with radiation down her arm. She was given a shot of Toradol and Norflex and states that this did help with the back pain but she is still having quite a bit of radiation of pain into her arm. She states her pain is better but her arm is still feeling numb with tingling and occasional sharp shooting pains. She denies any injury or trauma. She was given a muscle relaxer at home which she states does help. She has not scheduled a follow up in clinic yet. Review of systems: As per history of present illness and below otherwise all systems reviewed and negative. Past medical history: As per history of present illness and as reviewed below otherwise noncontributory. Surgical history: As per history of present illness and as reviewed below otherwise noncontributory. Social history: No reported history of drug or alcohol abuse. Family history: As per history of present illness and as reviewed below otherwise noncontributory. Physical exam: General: Patient sitting comfortably in no acute distress and nontoxic appearing HEENT: Atraumatic, normocephalic, pupils reactive, negative for conjunctival pallor or scleral icterus, mucous membranes moist, throat clear, neck supple, nontender, trachea midline. No meningeal signs. Lungs: Clear to auscultation, breath sounds equal bilaterally, chest nontender. Heart: S1S2, regular, negative for clicks, rubs, or overt murmur. Abdomen: Soft, nondistended, nontender. Negative for masses or hepatosplenomegaly. Negative for costovertebral tenderness. Pelvis: Stable nontender. Genitourinary: Deferred. Rectal: Deferred. Spine: No vertebral tenderness or step off to palpation. Pain to palpation of cervical paraspinals and right trapezius. Extremities: UE strength 5/5. Positive tinels sign at ulnar tunnel. Atraumatic, negative for cords or calf pain. Neurovascular unremarkable. Neuro: Awake, alert, oriented. Cranial nerves II through XII unremarkable. Cerebellum unremarkable. Motor and sensory unremarkable throughout. Exam nonfocal. Notes: Diagnostics: CT cervical spine Therapeutics: Solumedrol 125mg Prescriptions: Medrol dosepak Tramadol Impression: Cervical radiculopathy Plan: 1. Take medications as instructed. Alternate tylenol and motrin, tramadol as needed for severe pain. Do not take while driving as it may make you drowsy 2. Follow up with primary care provider 3. Return to ED as needed as discussed Definitive disposition and diagnosis as appropriate pending reevaluation and review of above. Left shoulder Pain Score (Numeric/FACES): 7 - Related Data Allergies Allergy/AdvReac Type Severity Reaction Status Date / Time iodine Allergy Hives Verified 07/09/18 11:59 latex Allergy Shortness Verified 07/09/18 11:59 of Breath milk Allergy Other Verified 07/09/18 11:59 dust Allergy Shortness Uncoded 07/09/18 11:59 of Breath Home Meds: Home Meds Citalopram Hydrobromide [Celexa] 40 mg PO DAILY 01/09/17 [History] Zopitan 5 mg PO DAILY 01/09/17 [History] buPROPion [Wellbutrin] 300 mg PO DAILY 04/21/18 [History] diphenhydrAMINE [Benadryl] 50 mg PO ONETIME #1 cap 04/21/18 [Rx] Cephalexin [Keflex] 250 mg PO QID 07/07/18 [History] metroNIDAZOLE [Metronidazole] 500 mg PO BID 07/07/18 [History] Past Medical History - Past Health History Medical/Surgical History: Denies Medical/Surgical History HEENT History: Reports: None Cardiovascular History: Reports: None Respiratory History: Reports: None Gastrointestinal History: Reports: None Genitourinary History: Reports: None 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 Musculoskeletal History: Reports: None Neurological History: Reports: None Psychiatric History: Reports: Depression Endocrine/Metabolic History: Reports: None Hematologic History: Reports: None Immunologic History: Reports: None Oncologic (Cancer) History: Reports: None Dermatologic History: Reports: None - Infectious Disease History Infectious Disease History: Reports: None - Past Surgical History Head Surgeries/Procedures: Reports: None Female Surgical History: Reports: Section Social & Family History - Family History Family Medical History: Noncontributory - Tobacco Use Smoking Status *Q: Current Every Day Smoker Years of Tobacco use: 29 Packs/Tins Daily: 1 - Caffeine Use Caffeine Use: Reports: Coffee, Soda - Recreational Drug Use Recreational Drug Use: No Review of Systems - Review of Systems Review Of Systems: ROS reveals no pertinent complaints other than HPI. ED EXAM, GENERAL - Physical Exam Exam: See Below (see dictation) Course - Vital Signs Last Recorded V/S: Last Vital Signs Temp 96.8 F 07/09/18 12:00 Pulse 71 07/09/18 12:00 Resp 16 07/09/18 12:00 BP 121/72 07/09/18 12:00 Pulse Ox 98 07/09/18 12:00 - Orders/Labs/Meds Meds: Medications Discontinued Medications Generic Name Dose Route Start Last Admin Trade Name Freq PRN Reason Stop Dose Admin Methylprednisolone Sodium Succinate 125 mg 07/09/18 12:20 07/09/18 12:45 Solu-Medrol IM 07/09/18 12:21 125 mg ONETIME ONE Administration Departure - Departure Time of Disposition: 14:07 Disposition: Home, Self-Care 01 Condition: Good Clinical Impression: Cervical radiculopathy - Discharge Information Referrals: PCP,None [Primary Care Provider] - Forms: ED Department Discharge Additional Instructions: The following information is given to patients seen in the emergency department who are being discharged to home. This information is to outline your options for follow-up care. We provide all patients seen in our emergency department with a follow-up referral. The need for follow-up, as well as the timing and circumstances, are variable depending upon the specifics of your emergency department visit. If you don't have a primary care physician on staff, we will provide you with a referral. We always advise you to contact your personal physician following an emergency department visit to inform them of the circumstance of the visit and for follow-up with them and/or the need for any referrals to a consulting specialist. The emergency department will also refer you to a specialist when appropriate. This referral assures that you have the opportunity for follow-up care with a specialist. All of these measure are taken in an effort to provide you with optimal care, which includes your follow-up. Under all circumstances we always encourage you to contact your private physician who remains a resource for coordinating your care. When calling for follow-up care, please make the office aware that this follow-up is from your recent emergency room visit. If for any reason you are refused follow-up, please contact the [facility] Emergency Department at and asked to speak to the emergency department charge nurse. [address] [address] 1. Take medications as instructed. Alternate tylenol and motrin, tramadol as needed for severe pain. Do not take while driving as it may make you drowsy 2. Follow up with primary care provider 3. Return to ED as needed as discussed
[2018-07-09 12:36] VITALS: BP 121/72
--- NOTE | 2018-07-09 13:49 | CT ---
EXAMINATION: CT cervical spine HISTORY: Pain COMPARISON: None TECHNIQUE: Axial CT imaging obtained through the cervical spine without contrast. Coronal and sagittal reconstructions obtained. FINDINGS: The cervical spinal alignment is normal. The vertebral body heights and disc spaces appear well-maintained. There is no fracture or acute osseous abnormality. Bone mineralization and disc spaces are preserved. Paravertebral soft tissues are normal. IMPRESSION: 1. Unremarkable CT cervical spine.
== END 2018-07-09 14:19 | disposition home or self-care (01) ==
LOC: MW.ED 11:50
DX: M54.12 Radiculopathy, cervical region (principal); F32.9 Major depressive disorder, single episode, unspecified; F17.210 Nicotine dependence, cigarettes, uncomplicated; Z79.899 Other long term (current) drug therapy; Z91.040 Latex allergy status; Z91.011 Allergy to milk products; Z88.8 Allergy status to other drugs, medicaments and biological substances
CPT/HCPCS: 72125; 96372; 99283; J2930

== ENCOUNTER 2019-01-30 22:58 | Emergency (ER) | payer MEDICAID ==
--- NOTE | 2019-01-30 23:04 | EDM.PDOC ---
ED HPI GENERAL MEDICAL PROBLEM - General Chief Complaint: General Stated Complaint: MUSCLE SPASM Time Seen by Provider: 01/30/19 23:02 - History of Present Illness INITIAL COMMENTS - FREE TEXT/NARRATIVE: HISTORY AND PHYSICAL: History of present illness: Past of 38-year-old female presents with a concern of muscle spasms and anxiety she's had some personal stress with regard to housing issues presents here via paramedics. No fever chills nausea vomiting chest pain shortness of breath or other concern. Review of systems: As per history of present illness and below otherwise all systems reviewed and negative. Past medical history: As per history of present illness and as reviewed below otherwise noncontributory. Surgical history: As per history of present illness and as reviewed below otherwise noncontributory. Social history: No reported history of drug or alcohol abuse. Family history: As per history of present illness and as reviewed below otherwise noncontributory. Physical exam: HEENT: Atraumatic, normocephalic, pupils reactive, negative for conjunctival pallor or scleral icterus, mucous membranes moist, throat clear, neck supple, nontender, trachea midline. Lungs: Clear to auscultation, breath sounds equal bilaterally, chest nontender. Heart: S1S2, regular, negative for clicks, rubs, or JVD. Abdomen: Soft, nondistended, nontender. Negative for masses or hepatosplenomegaly. Negative for costovertebral tenderness. Pelvis: Stable nontender. Genitourinary: Deferred. Rectal: Deferred. Extremities: Atraumatic, negative for cords or calf pain. Neurovascular unremarkable. Neuro: Awake, alert, oriented. Cranial nerves II through XII unremarkable. Cerebellum unremarkable. Motor and sensory unremarkable throughout. Exam nonfocal. Diagnostics: CBC CMP Therapeutics: None Impression: #1 medical screening exam #2 anxiety Definitive disposition and diagnosis as appropriate pending reevaluation and review of above. - Related Data Allergies Allergy/AdvReac Type Severity Reaction Status Date / Time iodine Allergy Hives Verified 07/09/18 11:59 latex Allergy Shortness Verified 07/09/18 11:59 of Breath milk Allergy Other Verified 07/09/18 11:59 dust Allergy Shortness Uncoded 07/09/18 11:59 of Breath Home Meds: Home Meds Citalopram Hydrobromide [Celexa] 40 mg PO DAILY 01/09/17 [History] Zopitan 5 mg PO DAILY 01/09/17 [History] buPROPion [Wellbutrin] 300 mg PO DAILY 04/21/18 [History] diphenhydrAMINE [Benadryl] 50 mg PO ONETIME #1 cap 04/21/18 [Rx] Cephalexin [Keflex] 250 mg PO QID 07/07/18 [History] metroNIDAZOLE [Metronidazole] 500 mg PO BID 07/07/18 [History] methylPREDNISolone [Medrol] 4 mg PO ASDIRECTED #1 tab.ds.pk 07/09/18 [Rx] traMADol [Ultram] 50 mg PO Q6H PRN #12 tab 07/09/18 [Rx] Past Medical History - Past Health History Medical/Surgical History: Denies Medical/Surgical History HEENT History: Reports: None Cardiovascular History: Reports: None Respiratory History: Reports: None Gastrointestinal History: Reports: None Genitourinary History: Reports: None 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 Musculoskeletal History: Reports: None Neurological History: Reports: None Psychiatric History: Reports: Depression Endocrine/Metabolic History: Reports: None Hematologic History: Reports: None Immunologic History: Reports: None Oncologic (Cancer) History: Reports: None Dermatologic History: Reports: None - Infectious Disease History Infectious Disease History: Reports: None - Past Surgical History Head Surgeries/Procedures: Reports: None Female Surgical History: Reports: Section Social & Family History - Family History Family Medical History: Noncontributory - Caffeine Use Caffeine Use: Reports: Coffee, Soda ED ROS GENERAL - Review of Systems Review Of Systems: ROS reveals no pertinent complaints other than HPI. ED EXAM, GENERAL - Physical Exam Exam: See Below (See dictation) Course - Orders/Labs/Meds Orders: Active Orders 24 hr Category Date Time Status CBC WITH AUTO DIFF [HEME] Stat Lab 01/30/19 22:59 Ordered CMP [COMPREHENSIVE METABOLIC PN,CMP] [CHEM] Stat Lab 01/30/19 22:59 Ordered Departure - Departure Time of Disposition: 23:03 Disposition: Home, Self-Care 01 Condition: Good Clinical Impression: Encounter for medical screening examination, Anxiety - Discharge Information Additional Instructions: The following information is given to patients seen in the emergency department who are being discharged to home. This information is to outline your options for follow-up care. We provide all patients seen in our emergency department with a follow-up referral. The need for follow-up, as well as the timing and circumstances, are variable depending upon the specifics of your emergency department visit. If you don't have a primary care physician on staff, we will provide you with a referral. We always advise you to contact your personal physician following an emergency department visit to inform them of the circumstance of the visit and for follow-up with them and/or the need for any referrals to a consulting specialist. The emergency department will also refer you to a specialist when appropriate. This referral assures that you have the opportunity for followup care with a specialist. All of these measure are taken in an effort to provide you with optimal care, which includes your followup. Under all circumstances we always encourage you to contact your private physician who remains a resource for coordinating your care. When calling for followup care, please make the office aware that this follow-up is from your recent emergency room visit. If for any reason you are refused follow-up, please contact the [facility] emergency department at and asked to speak to the emergency department charge nurse. Follow-up primary medical doctor as needed as discussed return as needed as discussed - My Orders Last 24 Hours: My Active Orders 01/30/19 22:59 CBC WITH AUTO DIFF [HEME] Stat CMP [COMPREHENSIVE METABOLIC PN,CMP] [CHEM] Stat - Assessment/Plan Last 24 Hours: My Active Orders 01/30/19 22:59 CBC WITH AUTO DIFF [HEME] Stat CMP [COMPREHENSIVE METABOLIC PN,CMP] [CHEM] Stat
[2019-01-30 23:30] LABS: BLOOD UREA NITROGEN,BUN 24 mg/dL (7.0-18.0); CARBON DIOXIDE,CO2 22.6 mmol/L (21.0-32.0); CHLORIDE,CL 107 mmol/L (98-107); GLUCOSE RANDOM 87 mg/dL (74-106); POTASSIUM,K 4.3 mmol/L (3.5-5.1); SODIUM,NA 141 mmol/L (136-145)
[2019-01-30] MEDS ORDERED: Acetaminophen 500 MG Tab PO ONE (23:43)
[2019-01-31 00:15] VITALS: BP 146/78; PULSE 94
== END 2019-01-31 00:15 | disposition home or self-care (01) ==
LOC: MW.ED 22:58
DX: F41.9 Anxiety disorder, unspecified (principal); F32.9 Major depressive disorder, single episode, unspecified; Z91.040 Latex allergy status; Z91.011 Allergy to milk products; Z91.048 Other nonmedicinal substance allergy status; Z91.09 Other allergy status, other than to drugs and biological substances; Z79.899 Other long term (current) drug therapy
CPT/HCPCS: 36415; 80053; 85025; 99284; A9270; 99282

== ENCOUNTER 2019-03-16 22:05 | Emergency (ER) | payer MEDICAID ==
[2019-03-16] MEDS ORDERED: methylPREDNISolone Sodium Succinate 125 MG/2 ML SDV IVPUSH ONE (22:12)
[2019-03-16] MEDS ORDERED: Sodium Chloride 0.9% 10 ML Syringe FLUSH PRN (22:12)
[2019-03-16] MEDS ORDERED: Sodium Chloride 0.9% 2.5 ML Syringe FLUSH PRN (22:12)
[2019-03-16] MEDS ORDERED: diphenhydrAMINE 50 MG/ML SDV IVPUSH ONE (22:12)
[2019-03-16] MEDS ORDERED: Ketorolac 30 MG/ML SDV IVPUSH ONE (22:12)
[2019-03-16] MEDS ORDERED: Sodium Chloride 0.9% 1,000 ML IV ONE (22:12)
[2019-03-16] MEDS ORDERED: Famotidine 20 MG/2 ML SDV IVPUSH ONE (22:12)
--- NOTE | 2019-03-16 22:17 | EDM.PDOC ---
ED HPI GENERAL MEDICAL PROBLEM - General Stated Complaint: ALLERGIC REACTION Time Seen by Provider: 03/16/19 22:11 - History of Present Illness INITIAL COMMENTS - FREE TEXT/NARRATIVE: HISTORY AND PHYSICAL: History of present illness: The patient is a 38-year-old female who underwent allergy testing from 3 PM to 7 PM at [facility] in [place] and had multiple injections on her deltoid areas bilaterally the back of her neck and her thighs and presents with complaints of swelling of bilateral areas of her shoulders tingling in her right arm tongue swelling and pain right facial swelling and pain and pain in her right neck with spasm. She said she was driving home when this all started and she's had no other rashes or itching sensation and she is not short of breath. She says that her throat really hurts in the back of her throat like she has bad strep throat but earlier before this testing she was in her usual state of good health. She is able to speak and she is not coughing and she has no nausea vomiting abdominal pain or chest pain. She says that the pain in her neck is anteriorly and she also has pain in her right face and the tongue and inside of her mouth. Review of systems: As per history of present illness and below otherwise all systems reviewed and negative. Past medical history: As per history of present illness and as reviewed below otherwise noncontributory. Surgical history: As per history of present illness and as reviewed below otherwise noncontributory. Social history: No reported history of drug or alcohol abuse. Family history: As per history of present illness and as reviewed below otherwise noncontributory. Physical exam: General: Well-developed well-nourished female who is overweight and nontoxic. She is speaking clearly without breathlessness with a slight thickening of her tongue and she is handling her secretions. On visual inspection she is talking more out of the right side of her mouth and has difficulty opening her mouth because she says is painful, there is some mild swelling of the right cheek area but no rashes. HEENT: Atraumatic, normocephalic, pupils reactive, EOMs are intact, negative for conjunctival pallor or scleral icterus, mucous membranes moist, throat clear , neck supple, nontender, trachea midline. Cervical adenopathy or nuchal rigidity and there is tenderness with palpation of the sternocleidomastoid on the right but there is no anterior neck soft tissue swelling appreciated there is no posterior neck tenderness swelling or erythema. I do not see any lesions on the skin of the face. Lungs: Clear to auscultation, breath sounds equal bilaterally, chest nontender. No work of breathing wheezing or stridor Heart: S1S2, regular, negative for clicks, rubs, or JVD. Abdomen: Soft, nondistended, nontender. Negative for masses or hepatosplenomegaly. Negative for costovertebral tenderness. Pelvis: Stable nontender. Genitourinary: Deferred. Rectal: Deferred. Extremities: Atraumatic, negative for cords or calf pain. Neurovascular unremarkable. At the anterior thighs there is no gross warmth appreciated on palpation but at the deltoids bilaterally there is ill-defined erythema warmth and swelling appreciated with tenderness in this region, but the patient has full range of motion of these upper extremities. There is no distal swelling defects or deformities and there are no skin rashes. Neuro: Awake, alert, oriented. Cranial nerves II through XII unremarkable. Cerebellum unremarkable. Motor and sensory unremarkable throughout. Exam nonfocal. Back: There is no warmth erythema or soft tissue swelling appreciated Diagnostics: CBC CMP CPK soft tissue neck x-ray CT scan of the soft tissue neck X-ray was difficult to obtain as the patient was punching and could not relax her shoulder and we could not get a good look and she is complaining of persistent pain with swallow so I will do a CT scan Rapid strep Therapeutics: IV pulse ox O2 as needed IV fluids Benadryl Solu-Medrol Pepcid Toradol norflex, viscous lidocaine Patient is feeling much improved and she is no longer talking out of the right side of her mouth and her right face and right neck are much less swollen and she is having only minimal tenderness in her trapezius and sternocleidomastoid area. The patient says that she gets hives and has trouble breathing when she gets iodine or contrast dye so I'll have to perform the CT scan without contrast. I discussed with the patient that we are having delays with CT because the machine has gone down and we are attempting to fix the problem area as she is much more relaxed and can relax her shoulder we will try a repeat soft tissue neck x-ray to see if we can get information about why she is having so much discomfort with swallowing. She is now able to open her mouth widely and I can see the tonsillar areas which are symmetrical and have some swelling but no erythema or exudates and the uvula is midline and there is no posterior oropharyngeal changes. Her tongue is not swollen and she is able to open widely or this exam. She says she does feel better overall and the only thing that is bothering her right now is discomfort with swallowing. She is aware that CT scan is down for the entire evening and she says she is comfortable going home and she is feeling improved. I will give her some viscous lidocaine and see if that helps her and I will give her prescriptions for home and reasons to return to the ED. I have strongly advised her to contact the crop puller that she saw earlier today. Impression: Acute allergic reaction, muscle spasm, odynophagia Definitive disposition and diagnosis as appropriate pending reevaluation and review of above. throat;both arms Pain Score (Numeric/FACES): 10 - Related Data Allergies Allergy/AdvReac Type Severity Reaction Status Date / Time iodine Allergy Hives Verified 03/16/19 22:20 latex Allergy Shortness Verified 03/16/19 22:20 of Breath milk Allergy Other Verified 03/16/19 22:20 dust Allergy Shortness Uncoded 03/16/19 22:20 of Breath Home Meds: Home Meds Citalopram Hydrobromide [Celexa] 40 mg PO DAILY 01/09/17 [History] Zopitan 5 mg PO DAILY 01/09/17 [History] buPROPion [Wellbutrin] 300 mg PO DAILY 04/21/18 [History] diphenhydrAMINE [Benadryl] 50 mg PO ONETIME #1 cap 04/21/18 [Rx] methylPREDNISolone [Medrol] 4 mg PO ASDIRECTED #1 tab.ds.pk 07/09/18 [Rx] traMADol [Ultram] 50 mg PO Q6H PRN #12 tab 07/09/18 [Rx] Past Medical History - Past Health History Medical/Surgical History: Denies Medical/Surgical History HEENT History: Reports: None Cardiovascular History: Reports: None Respiratory History: Reports: None Gastrointestinal History: Reports: None Genitourinary History: Reports: None 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 History: CSx1 Musculoskeletal History: Reports: None Neurological History: Reports: None Psychiatric History: Reports: Bipolar, Depression Endocrine/Metabolic History: Reports: None Hematologic History: Reports: None Immunologic History: Reports: None Oncologic (Cancer) History: Reports: None Dermatologic History: Reports: None - Infectious Disease History Infectious Disease History: Reports: None - Past Surgical History Head Surgeries/Procedures: Reports: None Female Surgical History: Reports: Section Social & Family History - Family History Family Medical History: Noncontributory - Caffeine Use Caffeine Use: Reports: Coffee, Soda, Tea ED ROS GENERAL - Review of Systems Review Of Systems: ROS reveals no pertinent complaints other than HPI. ED EXAM, GENERAL - Physical Exam Exam: See Below (See dictation) Course - Vital Signs Last Recorded V/S: Last Vital Signs Temp 35.8 C 03/16/19 22:05 Pulse 125 H 03/16/19 22:05 Resp 18 03/16/19 22:05 BP 107/80 03/16/19 22:05 Pulse Ox 95 03/16/19 22:05 - Orders/Labs/Meds Orders: Active Orders 24 hr Category Date Time Status Oxygen Therapy, ED [RC] ASDIRECTED Care 03/16/19 22:11 Active Pulse Oximetry [RC] ASDIRECTED Care 03/16/19 22:11 Active Soft Tissue Neck wo Cont [CT] Stat Exams 03/16/19 23:39 Ordered CULTURE STREP A CONFIRMATION [] Stat Lab 03/17/19 00:20 Results STREP SCRN A RAPID W CULT CONF [] Stat Lab 03/17/19 00:20 Results Sodium Chloride 0.9% [Saline Flush] Med 03/16/19 22:12 Active 10 ml FLUSH ASDIRECTED PRN Sodium Chloride 0.9% [Saline Flush] Med 03/16/19 22:12 Active 2.5 ml FLUSH ASDIRECTED PRN Saline Lock Insert [OM.PC] Stat Oth 03/16/19 22:11 Ordered Medication Orders Sodium Chloride (Saline Flush) 10 ml FLUSH ASDIRECTED PRN PRN Reason: Keep Vein Open Sodium Chloride (Saline Flush) 2.5 ml FLUSH ASDIRECTED PRN PRN Reason: Keep Vein Open Labs: Laboratory Tests 03/16/19 03/16/19 Range/Units 22:15 22:15 WBC 16.28 H (4.0-11.0) K/uL RBC 4.81 (4.30-5.90) M/uL Hgb 13.5 (12.0-16.0) g/dL Hct 41.5 (36.0-46.0) % MCV 86.3 (80.0-98.0) fL MCH 28.1 (27.0-32.0) pg MCHC 32.5 (31.0-37.0) g/dL RDW Std Deviation 44.9 (28.0-62.0) fl RDW Coeff of Kang 15 (11.0-15.0) % Plt Count 374 (150-400) K/uL MPV 9.20 (7.40-12.00) fL Neut % (Auto) 80.5 H (48.0-80.0) % Lymph % (Auto) 16.7 (16.0-40.0) % Pepin % (Auto) 2.5 (0.0-15.0) % Eos % (Auto) 0.2 (0.0-7.0) % Baso % (Auto) 0.1 (0.0-1.5) % Neut # (Auto) 13.1 H (1.4-5.7) K/uL Lymph # (Auto) 2.7 H (0.6-2.4) K/uL Pepin # (Auto) 0.4 (0.0-0.8) K/uL Eos # (Auto) 0.0 (0.0-0.7) K/uL Baso # (Auto) 0.0 (0.0-0.1) K/uL Nucleated RBC % 0.0 /100WBC Nucleated RBCs # 0 K/uL Sodium 139 (136-145) mmol/L Potassium 3.7 (3.5-5.1) mmol/L Chloride 107 (98-107) mmol/L Carbon Dioxide 21.8 (21.0-32.0) mmol/L BUN 13 (7.0-18.0) mg/dL Creatinine 0.9 (0.6-1.0) mg/dL Est Cr Clr Drug Dosing 99.72 mL/min Estimated GFR (MDRD) > 60.0 ml/min Glucose 83 (74-106) mg/dL Calcium 9.0 (8.5-10.1) mg/dL Total Bilirubin 0.4 (0.2-1.0) mg/dL AST 13 L (15-37) IU/L ALT 20 (14-63) IU/L Alkaline Phosphatase 84 (46-116) U/L Creatine Kinase 119 (26-308) U/L Total Protein 6.5 (6.4-8.2) g/dL Albumin 2.8 L (3.4-5.0) g/dL Globulin 3.7 (2.6-4.0) g/dL Albumin/Globulin Ratio 0.8 L (0.9-1.6) Meds: Medications Generic Name Dose Route Start Last Admin Trade Name Freq PRN Reason Stop Dose Admin Sodium Chloride 10 ml 03/16/19 22:12 Saline Flush FLUSH ASDIRECTED PRN Keep Vein Open Sodium Chloride 2.5 ml 03/16/19 22:12 Saline Flush FLUSH ASDIRECTED PRN Keep Vein Open Discontinued Medications Generic Name Dose Route Start Last Admin Trade Name Freq PRN Reason Stop Dose Admin Diphenhydramine HCl 50 mg 03/16/19 22:12 03/16/19 22:26 Benadryl IVPUSH 03/16/19 22:13 50 mg ONETIME ONE Administration Famotidine 20 mg 03/16/19 22:12 03/16/19 22:25 Pepcid IVPUSH 03/16/19 22:13 20 mg ONETIME ONE Administration Sodium Chloride 1,000 mls @ 999 mls/hr 03/16/19 22:12 03/16/19 22:21 Normal Saline IV 03/16/19 23:12 999 mls/hr STAT ONE Administration Ketorolac Tromethamine 30 mg 03/16/19 22:12 03/16/19 22:27 Toradol IVPUSH 03/16/19 22:13 30 mg ONETIME ONE Administration Lidocaine HCl 15 ml 03/17/19 01:06 03/17/19 01:12 Xylocaine 2% Viscous PO 03/17/19 01:07 15 ml ONETIME ONE Administration Methylprednisolone Sodium Succinate 125 mg 03/16/19 22:12 03/16/19 22:22 Solu-Medrol IVPUSH 03/16/19 22:13 125 mg ONETIME ONE Administration Ondansetron HCl 4 mg 03/16/19 22:49 03/16/19 22:55 Zofran IVPUSH 03/16/19 22:50 4 mg ONETIME ONE Administration Orphenadrine Citrate 60 mg 03/16/19 23:34 Norflex IM 03/16/19 23:35 ONETIME ONE Orphenadrine Citrate 60 mg 03/16/19 23:35 03/16/19 23:55 Norflex IV 03/16/19 23:36 60 mg ONETIME ONE Administration Departure - Departure Time of Disposition: 01:13 Disposition: Home, Self-Care 01 Condition: Good Clinical Impression: Allergic reaction, Odynophagia, Muscle spasm - Discharge Information Referrals: PCP,None [Primary Care Provider] - Additional Instructions: The following information is given to patients seen in the emergency department who are being discharged to home. This information is to outline your options for follow-up care. We provide all patients seen in our emergency department with a follow-up referral. The need for follow-up, as well as the timing and circumstances, are variable depending upon the specifics of your emergency department visit. If you don't have a primary care physician on staff, we will provide you with a referral. We always advise you to contact your personal physician following an emergency department visit to inform them of the circumstance of the visit and for follow-up with them and/or the need for any referrals to a consulting specialist. The emergency department will also refer you to a specialist when appropriate. This referral assures that you have the opportunity for followup care with a specialist. All of these measure are taken in an effort to provide you with optimal care, which includes your followup. Under all circumstances we always encourage you to contact your private physician who remains a resource for coordinating your care. When calling for followup care, please make the office aware that this follow-up is from your recent emergency room visit. If for any reason you are refused follow-up, please contact the [facility] emergency department at and ask to speak to the emergency department charge nurse. [facility] Primary care- Internal Medicine and Family [address] [address] Please connect with the crop puller that did your allergy testing earlier today and let them know about tonight's events. Please fill the prescriptions you have been given for medications for the allergic reaction and for the muscle spasm. Take sips of water and eat a soft diet and push hydration with ice chips and popsicles. Return to ER as needed and as discussed - My Orders Last 24 Hours: My Active Orders 03/16/19 22:11 Oxygen Therapy, ED [RC] ASDIRECTED Pulse Oximetry [RC] ASDIRECTED Saline Lock Insert [OM.PC] Stat 03/16/19 22:12 Sodium Chloride 0.9% [Saline Flush] 10 ml FLUSH ASDIRECTED PRN Sodium Chloride 0.9% [Saline Flush] 2.5 ml FLUSH ASDIRECTED PRN 03/16/19 23:39 Soft Tissue Neck wo Cont [CT] Stat 03/17/19 00:20 CULTURE STREP A CONFIRMATION [RM] Stat STREP SCRN A RAPID W CULT CONF [] Stat - Assessment/Plan Last 24 Hours: My Active Orders 03/16/19 22:11 Oxygen Therapy, ED [RC] ASDIRECTED Pulse Oximetry [RC] ASDIRECTED Saline Lock Insert [OM.PC] Stat 03/16/19 22:12 Sodium Chloride 0.9% [Saline Flush] 10 ml FLUSH ASDIRECTED PRN Sodium Chloride 0.9% [Saline Flush] 2.5 ml FLUSH ASDIRECTED PRN 03/16/19 23:39 Soft Tissue Neck wo Cont [CT] Stat 03/17/19 00:20 CULTURE STREP A CONFIRMATION [RM] Stat STREP SCRN A RAPID W CULT CONF [] Stat
[2019-03-16] MEDS ORDERED: Ondansetron 4 MG/2 ML SDV IVPUSH ONE (22:49)
--- NOTE | 2019-03-16 23:18 | CR ---
INDICATION: Pain and swelling TECHNIQUE: Soft tissue neck 1 view. COMPARISON: None FINDINGS: Limited evaluation of the lateral view due to underpenetration. The epiglottis is not well visualized. No gross subglottic narrowing. IMPRESSION: Limited evaluation due to underpenetration of the lateral view. The epiglottis is not well visualized. No gross subglottic swelling. Dictated by James Grace MD @ 03/16/2019 11:16:40 PM Dictated by: James Grace MD @ 03/16/2019 23:16:47 (Electronically Signed)
[2019-03-16 23:55] LABS: BLOOD UREA NITROGEN,BUN 13 mg/dL (7.0-18.0); CARBON DIOXIDE,CO2 21.8 mmol/L (21.0-32.0); CHLORIDE,CL 107 mmol/L (98-107); GLUCOSE RANDOM 83 mg/dL (74-106); POTASSIUM,K 3.7 mmol/L (3.5-5.1); SODIUM,NA 139 mmol/L (136-145)
--- NOTE | 2019-03-17 00:53 | CR ---
INDICATION: Odynophagia. COMPARISON: 03/16/2019. FINDINGS/IMPRESSION: Improved visualization of the cervical airway compared to the prior exam. The epiglottis is not optimally visualized but does not appear abnormally enlarged or thickened. No prevertebral soft tissue swelling or subglottic airway narrowing is noted. No radiopaque foreign body is seen. The included bones are unremarkable. Dictated by Vik Gr MD @ 03/17/2019 12:52:36 AM Dictated by: Vik Gr MD @ 03/17/2019 00:52:52 (Electronically Signed)
[2019-03-17] MEDS ORDERED: Lidocaine 2% Viscous Solution 15 ML Cup PO ONE (01:06)
[2019-03-17 01:16] VITALS: BP 143/81; PULSE 96
== END 2019-03-17 01:26 | disposition home or self-care (01) ==
LOC: MW.ED 22:05
DX: T78.40XA Allergy, unspecified, initial encounter (principal); M62.838 Other muscle spasm; R13.10 Dysphagia, unspecified; F31.9 Bipolar disorder, unspecified; Z91.011 Allergy to milk products; Z79.899 Other long term (current) drug therapy; Z91.040 Latex allergy status; Z88.8 Allergy status to other drugs, medicaments and biological substances; Z91.048 Other nonmedicinal substance allergy status
CPT/HCPCS: 36415; 70360; 70360-26; 80053; 82550; 85025; 87081; 87880-QW; 96361; 96374; 96375; 99285-25; A9270-GY; J1200; J1885; J2360; J2405; J2930; J3490; J7040

== ENCOUNTER 2019-05-05 05:28 | Emergency (ER) | payer MEDICAID ==
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
[2019-05-05] MEDS ORDERED: Ketorolac 60 MG/2 ML SDV IM ONE (05:54)
--- NOTE | 2019-05-05 07:26 | CR ---
INDICATION: Fall. Right hip pain. TECHNIQUE: AP pelvis 2 views and 2 views of the right hip. FINDINGS: No acute fracture or dislocation in the pelvis or either hip. Navel ring. Moderate sclerosis about the pubic symphysis with irregularity the pubic symphysis which should be degenerative. Remainder negative. Dictated by Chidi Correia MD @ May 05 2019 7:24AM Signed by Dr. Chidi Correia @ May 05 2019 7:24AM
[2019-05-05 07:38] VITALS: BP 143/86; PULSE 86
== END 2019-05-05 07:37 ==
LOC: MW.ED 05:28
DX: M25.551 Pain in right hip (principal); Z91.040 Latex allergy status; Z91.011 Allergy to milk products; Z88.8 Allergy status to other drugs, medicaments and biological substances; Z91.048 Other nonmedicinal substance allergy status
CPT/HCPCS: 73502; 96372; 99283; J1885; 99284

== ENCOUNTER 2019-11-02 16:05 | Emergency (ER) | payer MEDICAID ==
[2019-11-02] MEDS ORDERED: Ketorolac 60 MG/2 ML SDV IM ONE (16:58)
[2019-11-02] MEDS ORDERED: Acetaminophen/HYDROcodone 325-10 MG Tab PO ONE (17:00)
--- NOTE | 2019-11-02 17:08 | EDM.PDOC ---
ED HPI GENERAL MEDICAL PROBLEM - General Chief Complaint: Back Pain or Injury Stated Complaint: PAIN IN HIP Time Seen by Provider: 11/02/19 16:21 Source of Information: Reports: Patient History Limitations: Reports: No Limitations - History of Present Illness INITIAL COMMENTS - FREE TEXT/NARRATIVE: Presents reporting sciatica pain. The patient states she has had sciatica for some time. She has seen a neurosurgeon. She has an MRI scheduled but it was delayed due to the COVID. She had an DMITRY at [facility] in [place] last week. She took tramadol 50 mg at 6 AM this morning. She states that her symptoms are numbness in her right buttock and shooting pain down her right thigh and down to the foot. Medical problems include lumbar disc disease , asthma, allergies, osteoarthritis, obesity. Denies saddle anesthesia, bowel or bladder incontinence, fever, foreign travel or cancer history. back pain Pain Score (Numeric/FACES): 10 - Related Data Allergies Allergy/AdvReac Type Severity Reaction Status Date / Time iodine Allergy Hives Verified 11/02/19 16:23 latex Allergy Shortness Verified 11/02/19 16:23 of Breath milk Allergy Other Verified 11/02/19 16:23 dust Allergy Shortness Uncoded 11/02/19 16:23 of Breath Home Meds: Home Meds Citalopram Hydrobromide [Celexa] 20 mg PO DAILY 01/09/17 [History] buPROPion [Wellbutrin] 450 mg PO DAILY 04/21/18 [History] traMADol [Ultram] 50 mg PO Q6H PRN #12 tab 07/09/18 [Rx] Control 05/05/19 [History] Cyclobenzaprine [Flexeril] 0 mg PO TID 05/05/19 [History] Pregabalin [Lyrica] 0 mg PO DAILY 05/05/19 [History] Hydrocodone/Acetaminophen [Hydrocodon-Acetaminoph 7.5-325] 1 each PO Q8HR PRN # 10 tablet 11/02/19 [Rx] carisoprodoL [Soma] 350 mg PO QID PRN #30 tablet 11/02/19 [Rx] Past Medical History - Past Health History Medical/Surgical History: Denies Medical/Surgical History HEENT History: Reports: None Cardiovascular History: Reports: None Respiratory History: Reports: None Gastrointestinal History: Reports: None Genitourinary History: Reports: None TRACK MAINTAINER History: Reports: Other TRACK MAINTAINER History: CSx1 Musculoskeletal History: Reports: None Neurological History: Reports: None Psychiatric History: Reports: Bipolar, Depression Endocrine/Metabolic History: Reports: None Hematologic History: Reports: None Immunologic History: Reports: None Oncologic (Cancer) History: Reports: None Dermatologic History: Reports: None - Infectious Disease History Infectious Disease History: Reports: None - Past Surgical History Head Surgeries/Procedures: Reports: None Female Surgical History: Reports: Section Social & Family History - Family History Family Medical History: Noncontributory - Tobacco Use Smoking Status *Q: Current Every Day Smoker Years of Tobacco use: 20 Packs/Tins Daily: 1 - Caffeine Use Caffeine Use: Reports: Coffee, Soda, Tea ED ROS GENERAL - Review of Systems Review Of Systems: Comprehensive ROS is negative, except as noted in HPI. ED EXAM,LOWER BACK PAIN/INJURY - Physical Exam Exam: See Below Exam Limited By: No Limitations General Appearance: Alert, No Apparent Distress Ears: Normal External Exam Nose: Normal Inspection Throat/Mouth: Normal Inspection Head: Atraumatic, Normocephalic Neck: Normal Inspection Respiratory/Chest: No Respiratory Distress, Lungs Clear, Normal Breath Sounds Cardiovascular: Normal Peripheral Pulses, Regular Rate, Rhythm Back Exam: Normal Inspection, Muscle Spasm (Lower back), Vertebral Tenderness ( From about T7-S1) Extremities: Normal Inspection Neurological: Alert, Straight Leg Raise (R). No: Straight Leg Raise (L), Saddle Anesthesia DTR - Lower Extremities: 0: Knee (R) (Reported "always absent"), Knee (L) ( Reported "always absent") Psychiatric: Normal Affect Skin Exam: Warm, Dry, Intact, Normal Color, No Rash Lymphatic: No Adenopathy Course - Vital Signs Last Recorded V/S: Last Vital Signs Temp 36.1 C 11/02/19 16:19 Pulse 93 11/02/19 16:19 Resp 16 11/02/19 16:19 BP 136/87 11/02/19 16:19 Pulse Ox 97 11/02/19 16:19 - Orders/Labs/Meds Orders: Active Orders 24 hr Category Date Time Status Acetaminophen/HYDROcodone [[place] 325-10 MG] Med 11/02/19 17:00 Once 1 tab PO ONETIME ONE Meds: Medications Discontinued Medications Generic Name Dose Route Start Last Admin Trade Name Jonathan PRN Reason Stop Dose Admin Hydrocodone Bitart/Acetaminophen 1 tab 11/02/19 17:00 [place] 325-10 Mg PO 11/02/19 17:01 ONETIME ONE Ketorolac Tromethamine 60 mg 11/02/19 16:58 Toradol IM 11/02/19 16:59 ONETIME ONE Orphenadrine Citrate 60 mg 11/02/19 16:59 Norflex IM 11/02/19 17:00 ONETIME ONE Departure - Departure Time of Disposition: 17:21 Disposition: Home, Self-Care 01 Condition: Fair Clinical Impression: Sciatica - Discharge Information Referrals: Xavi De Anda MD [Primary Care Provider] - Additional Instructions: 1. Follow-up with your primary care provider to get your MRI and neurosurgery consults rescheduled. 2. Hydrocodone every 8 hours as needed for pain. No driving or operating machinery. Do not use with tramadol. 3. Soma with meals and at bedtime as needed for muscle relaxation. No driving or operating machinery. Stagger use with hydrocodone and tramadol. 4. Seek prompt medical attention for bowel or bladder incontinence, trouble walking, fever, new or worsening symptoms. Sepsis Event Note - Evaluation Sepsis Screening Result: No Definite Risk - Focused Exam Vital Signs: Vital Signs Temp Pulse Resp BP Pulse Ox 11/02/19 16:19 36.1 C 93 16 136/87 97 Date Exam was Performed: 11/02/19 Time Exam was Performed: 17:02 - My Orders Last 24 Hours: My Active Orders 11/02/19 17:00 Acetaminophen/HYDROcodone [[place] 325-10 MG] 1 tab PO ONETIME ONE - Assessment/Plan Last 24 Hours: My Active Orders 11/02/19 17:00 Acetaminophen/HYDROcodone [[place] 325-10 MG] 1 tab PO ONETIME ONE
[2019-11-02 17:52] VITALS: BP 140/85; PULSE 86
== END 2019-11-02 17:41 | disposition home or self-care (01) ==
LOC: MW.ED 16:05
DX: M54.31 Sciatica, right side (principal); F31.9 Bipolar disorder, unspecified; F17.210 Nicotine dependence, cigarettes, uncomplicated; E66.9 Obesity, unspecified; Z68.42 Body mass index [BMI] 45.0-49.9, adult; J45.909 Unspecified asthma, uncomplicated; Z91.040 Latex allergy status; Z91.011 Allergy to milk products; Z91.09 Other allergy status, other than to drugs and biological substances; Z79.899 Other long term (current) drug therapy
CPT/HCPCS: 96372; 99283; A9270; J1885; J2360; 99282

== ENCOUNTER 2020-01-14 02:33 | Emergency (ER) | payer MEDICAID ==
--- NOTE | 2020-01-14 02:42 | EDM.PDOC ---
ED HPI GENERAL MEDICAL PROBLEM - General Stated Complaint: BACK PAIN, SCIATIC NERVE PAIN Time Seen by Provider: 01/14/20 02:35 Source of Information: Reports: Patient History Limitations: Reports: No Limitations - History of Present Illness INITIAL COMMENTS - FREE TEXT/NARRATIVE: 39-year-old morbidly obese female with history of chronic back pain presents with right sided atraumatic sciatica pain. She has been having chronic low back pain for 6 months and over the last month she notes burning pain that radiates from her right hip down to the right foot associated with numbness. She denies fever, chills, dysuria, hematuria, falls, trauma, urinary or fecal incontinence. She has been taking Tylenol, Butrans pain patch, Lyrica. ROS: A 10-point review of systems, other than pertinent positives and negatives as stated per HPI, is otherwise negative PHYSICAL EXAM General: AOx4, GCS = 15, moderate distress, obese HEENT: dry mucous membrane Neck: supple, no meningismus, no Kernig or Brudzinski Cardiac: S1S2 RRR Respiratory: CTAB, no crackles or rales, no wheezing Abdomen: Soft, nontender, no rebound or guarding, nondistended, no pulsatile mass. Back: right lumbar paraspinal ttp, ttp right gluteus soft tissue. Musculoskeletal: NVI distally, no deformity, DP +2 bilaterally. Neuro: No focal deficits Back Pain Score (Numeric/FACES): 8 - Related Data Allergies Allergy/AdvReac Type Severity Reaction Status Date / Time iodine Allergy Hives Verified 11/02/19 16:23 latex Allergy Shortness Verified 11/02/19 16:23 of Breath milk Allergy Other Verified 11/02/19 16:23 pollen extracts Allergy Hives Verified 01/14/20 02:55 dust Allergy Shortness Uncoded 11/02/19 16:23 of Breath Home Meds: Home Meds buPROPion [Wellbutrin] 450 mg PO DAILY 10/23/18 [History] Control 05/05/19 [History] Pregabalin [Lyrica] 150 mg PO DAILY 05/05/19 [History] Albuterol Sulfate [Proair Hfa] 8.5 gm IH DAILY 01/14/20 [History] Buprenorphine [Butrans] 01/14/20 [History] Cyclobenzaprine [Flexeril] 10 mg PO BID #20 tab 01/14/20 [Rx] EPINEPHrine [Auvi-Q] 1 injection IM DAILY PRN 01/14/20 [History] FLUoxetine [PROzac] 40 mg PO DAILY 01/14/20 [History] Ibuprofen 800 mg PO Q6H #20 tablet 01/14/20 [Rx] Zaleplon 10 mg PO DAILY 01/14/20 [History] Past Medical History - Past Health History Medical/Surgical History: Denies Medical/Surgical History HEENT History: Reports: None Cardiovascular History: Reports: None Respiratory History: Reports: None Gastrointestinal History: Reports: None Genitourinary History: Reports: None CONTESTANT COORDINATOR History: Reports: Other CONTESTANT COORDINATOR History: CSx1 Musculoskeletal History: Reports: None Neurological History: Reports: None Psychiatric History: Reports: Bipolar, Depression Endocrine/Metabolic History: Reports: None Hematologic History: Reports: None Immunologic History: Reports: None Oncologic (Cancer) History: Reports: None Dermatologic History: Reports: None - Infectious Disease History Infectious Disease History: Reports: None - Past Surgical History Head Surgeries/Procedures: Reports: None Female Surgical History: Reports: Section Social & Family History - Family History Family Medical History: Noncontributory - Caffeine Use Caffeine Use: Reports: Coffee, Soda, Tea ED ROS GENERAL - Review of Systems Review Of Systems: Comprehensive ROS is negative, except as noted in HPI. ED EXAM, GENERAL - Physical Exam Exam: See Below Course - Vital Signs Last Recorded V/S: Last Vital Signs Temp 98.0 F 01/14/20 02:49 Pulse 80 01/14/20 02:49 Resp 20 01/14/20 02:49 BP 142/75 H 01/14/20 02:49 Pulse Ox 99 01/14/20 02:49 - Orders/Labs/Meds Meds: Medications Discontinued Medications Generic Name Dose Route Start Last Admin Trade Name Freq PRN Reason Stop Dose Admin Ketorolac Tromethamine 60 mg 01/14/20 03:38 01/14/20 03:53 Toradol IM 01/14/20 03:39 60 mg ONETIME ONE Administration - Re-Assessments/Exams Free Text/Narrative Re-Assessment/Exam: 01/14/20 0430 After IM toradol treatments, she improved clinically and is stable for discharge. I performed a repeat examination and the patient has not demonstrated any new abnormal findings. Patient exhibits normal vital signs and has exhibited a normal gait. I advised the patient to return to the ER for reevaluation if symptoms worsened, and to follow up with their PCP within 2-3 days. MEDICAL DECISION MAKING: I reviewed the patients past medical records, lab and radiographic findings. I discussed the case with the patient. My differential diagnosis included: Sciatica, low back strain. Patient's back pain is suggestive of musculoskeletal strain. There are no complaints of urinary or fecal incontinence, focal weakness. The patient has a normal gait in the ER. There is no evidence of fever, IV drug use, recent back surgery, or immunocompromised state. I do not suspect caude equine syndrome or cord compression which would warrant further imaging. Departure - Departure Time of Disposition: 04:28 Disposition: Home, Self-Care 01 Condition: Good Clinical Impression: Low back pain, Sciatica - Discharge Information *PRESCRIPTION DRUG MONITORING PROGRAM REVIEWED*: Not Applicable *COPY OF PRESCRIPTION DRUG MONITORING REPORT IN PATIENT JAMI: Not Applicable Prescriptions: Cyclobenzaprine [Flexeril] 10 mg PO BID #20 tab Ibuprofen 800 mg PO Q6H #20 tablet Instructions: Radicular Pain, Sciatica, What You Need to Know About Chronic Back Pain, Chronic Back Pain, Back Injury Prevention Referrals: Khloe Moulton DO [Primary Care Provider] - Additional Instructions: The following information is given to patients seen in the emergency department who are being discharged to home. This information is to outline your options for follow-up care. We provide all patients seen in our emergency department with a follow-up referral. The need for follow-up, as well as the timing and circumstances, are variable depending upon the specifics of your emergency department visit. If you don't have a primary care physician on staff, we will provide you with a referral. We always advise you to contact your personal physician following an emergency department visit to inform them of the circumstance of the visit and for follow-up with them and/or the need for any referrals to a consulting sp ecialist. The emergency department will also refer you to a specialist when appropriate. This referral assures that you have the opportunity for follow-up care with a specialist. All of these measure are taken in an effort to provide you with optimal care, which includes your follow-up. Under all circumstances we always encourage you to contact your private physician who remains a resource for coordinating your care. When calling for follow-up care, please make the office aware that this follow-up is from your recent emergency room visit. If for any reason you are refused follow-up, please contact the [facility] Emergency Department at and asked to speak to the emergency department charge nurse. If you do not have a primary care doctor, please follow up with the clinics below within 3-5 days. [facility] [address] [place] [id number] [facility] [address] [place] [id number] Sepsis Event Note (ED) - Focused Exam Vital Signs: Vital Signs Temp Pulse Resp BP Pulse Ox 01/14/20 02:49 98.0 F 80 20 142/75 H 99
[2020-01-14] MEDS ORDERED: Ketorolac 60 MG/2 ML SDV IM ONE (03:38)
--- NOTE | 2020-01-14 04:24 | CR ---
Indication: Right hip pain Technique: Three views Comparison: None Findings: Bones: No evidence of fracture. Joint spaces: No dislocation. Sclerosis of the pubic symphysis consistent with osteitis pubis. Soft tissues: Unremarkable. Dictated by Robb Bangura MD @ Jan 14 2020 4:21AM Signed by Dr. Robb Banugra @ Jan 14 2020 4:23AM
[2020-01-14 07:09] VITALS: BP 149/78; PULSE 76
== END 2020-01-14 03:27 | disposition home or self-care (01) ==
LOC: MW.ED 02:33
DX: M54.41 Lumbago with sciatica, right side (principal); E66.9 Obesity, unspecified; F31.9 Bipolar disorder, unspecified; Z68.41 Body mass index [BMI] 40.0-44.9, adult; Z88.6 Allergy status to analgesic agent; Z91.040 Latex allergy status; Z91.011 Allergy to milk products; Z91.09 Other allergy status, other than to drugs and biological substances; Z79.899 Other long term (current) drug therapy
CPT/HCPCS: 73502; 96372; 99283; J1885

== ENCOUNTER 2020-02-18 02:27 | Emergency (ER) | payer MEDICAID ==
[2020-02-18] MEDS ORDERED: Sodium Chloride 0.9% 2.5 ML Syringe FLUSH PRN (02:34)
[2020-02-18] MEDS ORDERED: Sodium Chloride 0.9% 10 ML Syringe FLUSH PRN (02:34)
[2020-02-18] MEDS ORDERED: fentaNYL 50 MCG/ML SDV IVPUSH ONE (02:34)
--- NOTE | 2020-02-18 02:37 | EDM.PDOC ---
ED [facility] GENERAL MEDICAL PROBLEM - General Chief Complaint: Abdominal Pain Stated Complaint: ABDOMINAL PAIN Time Seen by Provider: 02/18/20 02:34 Source of Information: Reports: Patient, Old Records History Limitations: Reports: No Limitations - History of Present Illness INITIAL COMMENTS - FREE TEXT/NARRATIVE: 39-year-old female the past medical history of sciatica, depression presenting with abdominal pain. She reports the onset of periumbilical abdominal pain while at rest around 4 PM this afternoon. Over the past several hours, this pain has migrated to the right lower quadrant of the abdomen. Nothing makes it better or worse. She describes it as "sharp" and constant. Nonradiating. Rated as 10 out of 10. This is been associated by some intermittent nausea and 2 episodes of nonbloody emesis. No fever. No history of prior pain like this. ROS: A 10-point review of systems was negative, except as noted in the HPI (or in the ROS section of this note). Past medical history: Reviewed, no additional pertinent history. Surgical history: Reviewed in system, no additional pertinent history. Social history: Reviewed in system, no additional pertinent history. Family history: Reviewed in system, no additional pertinent history. PHYSICAL EXAM Vital signs reviewed. Nursing notes reviewed. Constitutional: Awake, alert, non-distressed. Head: Normocephalic, atraumatic. Eyes: EOMI, conjunctiva normal, no discharge, no scleral icterus. Ears, Nose, Throat: External ears and nose normal, moist oral mucosa. Cardiovascular: 2+ radial pulse, capillary refill less than 2 seconds. Pulmonary: normal work of breathing, no accessory muscle use. Abdomen/GI: Obese soft, moderate tenderness the right lower quadrant and the suprapubic region. Nondistended, no guarding or rigidity, no masses. Musculoskeletal: No deformities. Integumentary: Appropriate color for ethnicity, warm, dry, no pallor or jaundice, no rash. Neurologic: Alert, answering questions appropriately, normal speech, no facial droop, moving all extremities well. Psychiatric: Appropriate mood and affect, normal thought process. abdomen Pain Score (Numeric/FACES): 8 - Related Data Allergies Allergy/AdvReac Type Severity Reaction Status Date / Time iodine Allergy Hives Verified 02/18/20 02:48 latex Allergy Shortness Verified 02/18/20 02:48 of Breath milk Allergy Other Verified 02/18/20 02:48 pollen extracts Allergy Hives Verified 02/18/20 02:48 dust Allergy Shortness Uncoded 02/18/20 02:48 of Breath Home Meds: Home Meds buPROPion [Wellbutrin] 300 mg PO DAILY 04/21/18 [History] Pregabalin [Lyrica] 75 mg PO DAILY 05/05/19 [History] EPINEPHrine [Auvi-Q] 1 injection IM DAILY PRN 01/14/20 [History] FLUoxetine [PROzac] 20 mg PO DAILY 01/14/20 [History] Ibuprofen 800 mg PO Q6H #20 tablet 01/14/20 [Rx] Zaleplon 10 mg PO DAILY 01/14/20 [History] Acetaminophen [Acetaminophen Extra Strength] 500 - 1,000 mg PO Q6H PRN #30 tablet 02/18/20 [Rx] Ibuprofen 400 mg PO Q6H PRN #30 tablet 02/18/20 [Rx] Ondansetron [Zofran] 4 mg PO Q8H PRN #15 tab 02/18/20 [Rx] cephALEXin [Keflex] 500 mg PO QID 7 Days #28 capsule 02/18/20 [Rx] oxyCODONE 5 - 10 mg PO Q6H PRN #15 tab 02/18/20 [Rx] traMADol [Ultram] 50 mg PO ASDIRECTED 02/18/20 [History] Past Medical History - Past Health History Medical/Surgical History: Denies Medical/Surgical History HEENT History: Reports: None Cardiovascular History: Reports: None Respiratory History: Reports: None Gastrointestinal History: Reports: None Genitourinary History: Reports: None JOB SUPERINTENDENT History: Reports: Other JOB SUPERINTENDENT History: CSx1 Musculoskeletal History: Reports: None Other Musculoskeletal History: sciatica Neurological History: Reports: None Psychiatric History: Reports: Bipolar, Depression Endocrine/Metabolic History: Reports: None Hematologic History: Reports: None Immunologic History: Reports: None Oncologic (Cancer) History: Reports: None Dermatologic History: Reports: None - Infectious Disease History Infectious Disease History: Reports: None - Past Surgical History Head Surgeries/Procedures: Reports: None Female Surgical History: Reports: Section Social & Family History - Family History Family Medical History: Noncontributory - Caffeine Use Caffeine Use: Reports: Coffee, Soda, Tea ED ROS GENERAL - Review of Systems Review Of Systems: See Below ED EXAM, GI/ABD - Physical Exam Exam: See Below Course - Vital Signs Text/Narrative:: Patient hemodynamically stable, afebrile, well-appearing, looks nontoxic. Differential diagnosis includes but is not limited to: appendicitis, ovarian torsion, inguinal hernia (umbilical vs direct vs indirect), abdominal wall hernia, constipation, mesenteric ischemia, cystitis, pyelonephritis, renal c olic, aortic aneurysm, gastritis, mesenteric thrombus, strangulated bowel, small bowel obstruction, IBD, and many others. CBC shows mild normocytic anemia. Lactate normal. Electrolytes and renal fu nction normal. LFTs and lipase are negative. test is negative. Urinalysis shows large occult blood, trace leukocyte esterase, 1+ bacteria, negative nitrites. CT abdomen/pelvis demonstrated a 3 mm calcification at the right UVJ and a 3 mm kidney stone in the proximal left ureter. Also demonstrated a partially calcified uterine fibroid. No evidence of appendicitis. Low suspicion for ovarian torsion given the pain has been constant since the onset and not in and on/off pattern, no evidence of enlarged right adnexa on CT scan. No evidence of hernia. Normal lactate and soft abdomen makes mesenteric ischemia less likely. Urinalysis is concerning for cystitis so the patient will be started on oral Keflex. No evidence of perinephric fat stranding or radiographic evidence of pyelonephritis. Low suspicion for AAA given the pain is in the right lower quadrant and not the midline of the abdomen and there is no evidence of AAA on CT. No evidence of bowel obstruction on CT imaging as well. Given fentanyl and morphine for pain, Zofran for nausea. Symptoms well controlled after. Tolerating PO, appears much more comfortable. Plan: Patient is stable to discharge home with urology clinic follow-up. Rx sent for Keflex, ondansetron, Tyelnol, Motrin, short course of oxycodone. Strict emergency department return precautions were provided, patient indicated understanding. All questions were answered prior to departure. Discharged in good condition. Last Recorded V/S: Last Vital Signs Temp 36.7 C 02/18/20 05:00 Pulse 82 02/18/20 05:00 Resp 18 02/18/20 05:00 BP 162/90 H 02/18/20 05:00 Pulse Ox 98 02/18/20 05:00 - Orders/Labs/Meds Orders: Active Orders 24 hr Category Date Time Status CULTURE URINE [RM] Stat Lab 02/18/20 02:43 Received Saline Lock Insert [OM.PC] Stat Oth 02/18/20 02:34 Ordered Labs: Laboratory Tests 02/18/20 02/18/20 02/18/20 Range/Units 02:41 02:41 02:41 WBC 9.93 (4.0-11.0) K/uL RBC 4.20 L (4.30-5.90) M/uL Hgb 11.6 L (12.0-16.0) g/dL Hct 34.6 L (36.0-46.0) % MCV 82.4 (80.0-98.0) fL MCH 27.6 (27.0-32.0) pg MCHC 33.5 (31.0-37.0) g/dL RDW Std Deviation 41.6 (28.0-62.0) fl RDW Coeff of Kang 14 (11.0-15.0) % Plt Count 411 H (150-400) K/uL MPV 9.20 (7.40-12.00) fL Neut % (Auto) 64.4 (48.0-80.0) % Lymph % (Auto) 22.4 (16.0-40.0) % Mitchell % (Auto) 11.0 (0.0-15.0) % Eos % (Auto) 2.0 (0.0-7.0) % Baso % (Auto) 0.2 (0.0-1.5) % Neut # (Auto) 6.4 H (1.4-5.7) K/uL Lymph # (Auto) 2.2 (0.6-2.4) K/uL Mitchell # (Auto) 1.1 H (0.0-0.8) K/uL Eos # (Auto) 0.2 (0.0-0.7) K/uL Baso # (Auto) 0.0 (0.0-0.1) K/uL Lactate (0.20-2.00) mmol/L Sodium 139 (136-145) mmol/L Potassium 4.3 (3.5-5.1) mmol/L Chloride 105 (98-107) mmol/L Carbon Dioxide 22.5 (21.0-32.0) mmol/L BUN 8 (7.0-18.0) mg/dL Creatinine 0.9 (0.6-1.0) mg/dL Est Cr Clr Drug Dosing 98.76 mL/min Estimated GFR (MDRD) > 60.0 ml/min Glucose 95 (74-106) mg/dL Calcium 9.1 (8.5-10.1) mg/dL Total Bilirubin 0.2 (0.2-1.0) mg/dL AST 14 L (15-37) IU/L ALT 19 (14-63) IU/L Alkaline Phosphatase 94 (46-116) U/L Total Protein 7.6 (6.4-8.2) g/dL Albumin 3.5 (3.4-5.0) g/dL Globulin 4.1 H (2.6-4.0) g/dL Albumin/Globulin Ratio 0.9 (0.9-1.6) Lipase 52 L (73-393) U/L HCG, Qual NEGATIVE (NEG) Urine Color Urine Appearance Urine pH (5.0-8.0) Ur Specific [place] (1.001-1.035) Urine Protein (NEGATIVE) mg/dL Urine Glucose (UA) (NEGATIVE) mg/dL Urine Ketones (NEGATIVE) mg/dL Urine Occult Blood (NEGATIVE) Urine Nitrite (NEGATIVE) Urine Bilirubin (NEGATIVE) Urine Urobilinogen (<2.0) EU/dL Ur Leukocyte Esterase (NEGATIVE) Urine RBC (0-2/HPF) Urine WBC (0-5/HPF) Ur Epithelial Cells (NONE-FEW) Calcium Oxalate Crystal (NEGATIVE) Urine Bacteria (NEGATIVE) Urine Mucus (NONE-MOD) Urine Yeast 02/18/20 02/18/20 Range/Units 02:43 03:11 WBC (4.0-11.0) K/uL RBC (4.30-5.90) M/uL Hgb (12.0-16.0) g/dL Hct (36.0-46.0) % MCV (80.0-98.0) fL MCH (27.0-32.0) pg MCHC (31.0-37.0) g/dL RDW Std Deviation (28.0-62.0) fl RDW Coeff of Kang (11.0-15.0) % Plt Count (150-400) K/uL MPV (7.40-12.00) fL Neut % (Auto) (48.0-80.0) % Lymph % (Auto) (16.0-40.0) % Mitchell % (Auto) (0.0-15.0) % Eos % (Auto) (0.0-7.0) % Baso % (Auto) (0.0-1.5) % Neut # (Auto) (1.4-5.7) K/uL Lymph # (Auto) (0.6-2.4) K/uL Mitchell # (Auto) (0.0-0.8) K/uL Eos # (Auto) (0.0-0.7) K/uL Baso # (Auto) (0.0-0.1) K/uL Lactate 0.7 (0.20-2.00) mmol/L Sodium (136-145) mmol/L Potassium (3.5-5.1) mmol/L Chloride (98-107) mmol/L Carbon Dioxide (21.0-32.0) mmol/L BUN (7.0-18.0) mg/dL Creatinine (0.6-1.0) mg/dL Est Cr Clr Drug Dosing mL/min Estimated GFR (MDRD) ml/min Glucose (74-106) mg/dL Calcium (8.5-10.1) mg/dL Total Bilirubin (0.2-1.0) mg/dL AST (15-37) IU/L ALT (14-63) IU/L Alkaline Phosphatase (46-116) U/L Total Protein (6.4-8.2) g/dL Albumin (3.4-5.0) g/dL Globulin (2.6-4.0) g/dL Albumin/Globulin Ratio (0.9-1.6) Lipase (73-393) U/L HCG, Qual (NEG) Urine Color YELLOW Urine Appearance CLOUDY Urine pH 5.5 (5.0-8.0) Ur Specific [place] 1.025 (1.001-1.035) Urine Protein TRACE H (NEGATIVE) mg/dL Urine Glucose (UA) NEGATIVE (NEGATIVE) mg/dL Urine Ketones NEGATIVE (NEGATIVE) mg/dL Urine Occult Blood LARGE H (NEGATIVE) Urine Nitrite NEGATIVE (NEGATIVE) Urine Bilirubin NEGATIVE (NEGATIVE) Urine Urobilinogen 0.2 (<2.0) EU/dL Ur Leukocyte Esterase TRACE H (NEGATIVE) Urine RBC 50-75 H (0-2/HPF) Urine WBC 1-2 (0-5/HPF) Ur Epithelial Cells RARE (NONE-FEW) Calcium Oxalate Crystal RARE (NEGATIVE) Urine Bacteria 1+ H (NEGATIVE) Urine Mucus LIGHT (NONE-MOD) Urine Yeast OCCASIONAL Meds: Medications Discontinued Medications Generic Name Dose Route Start Last Admin Trade Name Freq PRN Reason Stop Dose Admin Fentanyl 100 mcg 02/18/20 02:34 02/18/20 02:55 Fentanyl IVPUSH 02/18/20 02:35 100 mcg ONETIME ONE Administration Morphine Sulfate 8 mg 02/18/20 03:42 02/18/20 03:49 Morphine IVPUSH 02/18/20 03:43 8 mg ONETIME ONE Administration Ondansetron HCl 4 mg 02/18/20 03:51 02/18/20 03:55 Zofran IVPUSH 02/18/20 03:52 4 mg ONETIME ONE Administration Ondansetron HCl Confirm 02/18/20 03:51 02/18/20 03:55 Zofran Administered 02/18/20 03:52 Not Given Dose 4 mg .ROUTE .STK-MED ONE Sodium Chloride 2.5 ml 02/18/20 02:34 Saline Flush FLUSH ASDIRECTED PRN Keep Vein Open Sodium Chloride 10 ml 02/18/20 02:34 Saline Flush FLUSH ASDIRECTED PRN Keep Vein Open Departure - Departure Time of Disposition: 04:46 Disposition: Home, Self-Care 01 Condition: Good Clinical Impression: Kidney stone, Acute cystitis with hematuria - Discharge Information *PRESCRIPTION DRUG MONITORING PROGRAM REVIEWED*: Yes *COPY OF PRESCRIPTION DRUG MONITORING REPORT IN PATIENT JAMI: Not Applicable Prescriptions: Acetaminophen [Acetaminophen Extra Strength] 500 - 1,000 mg PO Q6H PRN #30 tablet PRN Reason: Pain (Mild 1-3) Ibuprofen 400 mg PO Q6H PRN #30 tablet PRN Reason: Pain (Mild 1-3) cephALEXin [Keflex] 500 mg PO QID 7 Days #28 capsule oxyCODONE 5 - 10 mg PO Q6H PRN #15 tab PRN Reason: Pain (Severe 7-10) Ondansetron [Zofran] 4 mg PO Q8H PRN #15 tab PRN Reason: Nausea/Vomiting Instructions: Kidney Stones, [id number], Urinary Tract Infection, Adult, [id number], Pain Medicine Instructions, [id number] Referrals: [facility] - Urology [Provider Group] - 1 Week (For follow-up of kidney stones.) Forms: ED Department Discharge Additional Instructions: Do not take your zaleplon medication if you are taking oxycodone. If you take these together, you are at risk of overdose, respiratory arrest, and . Do not take any alcohol or use any illicit drugs while you are taking the oxycodone medication. You were seen in the emergency department for abdominal pain. Your CT scans showed that you have kidney stones. Your blood work was reassuring. Your urine testing showed that you have a mild bladder infection. We prescribed you oral antibiotics along with nausea medication and pain medication. You should follow-up with the urologist in about 1 week for routine follow-up. Warning signs to come back to the ER include fever, chills, temperature of 100.4 higher, repeated vomiting, severe uncontrolled pain, or any other new or concerning symptoms. Please return the emergency department immediately if your symptoms worsen or if you feel worse. Thank you for choosing the [facility] emergency department in [place] for your medical needs today. It was a pleasure caring for you. The following information is given to patients seen in the emergency department who are being discharged. This information is to outline your options for follow-up care. We provide all patients seen in our emergency department with a follow-up referral. The need for follow-up, as well as the timing and circumstances, are variable depending upon the specifics of your emergency department visit. If you don't have a primary care physician on staff, we will provide you with a referral. We always advise you to contact your personal physician following an emergency department visit to inform them of the circumstance of the visit and for follow-up with them and/or the need for any referrals to a consulting specialist. The emergency department will also refer you to a specialist when appropriate. This referral assures that you have the opportunity for follow-up care with a specialist. All of these measure are taken in an effort to provide you with optimal care, which includes your follow-up. Under all circumstances we always encourage you to contact your private physician who remains a resource for coordinating your care. When calling for follow-up care, please make the office aware that this follow-up is from your recent emergency room visit. If for any reason you are refused follow-up, please contact the [facility] Emergency Department at and asked to speak to the emergency department charge nurse. If you do not have a primary care physician that is caring for you, you can contact these clinics below to set up an appointment to establish care: [facility] - Primary Care [address] [place] [address] [place] [address] Sepsis Event Note (ED) - Focused Exam Vital Signs: Vital Signs Temp Pulse Resp BP Pulse Ox 02/18/20 05:00 36.7 C 82 18 162/90 H 98 02/18/20 04:46 80 18 145/85 H 98 02/18/20 03:42 35.7 C L 90 20 130/83 98 02/18/20 02:36 35.5 C L 97 18 149/85 H 99 - My Orders Last 24 Hours: My Active Orders 02/18/20 02:34 Saline Lock Insert [OM.PC] Stat 02/18/20 02:43 CULTURE URINE [RM] Stat - Assessment/Plan Last 24 Hours: My Active Orders 02/18/20 02:34 Saline Lock Insert [OM.PC] Stat 02/18/20 02:43 CULTURE URINE [] Stat
[2020-02-18 03:10] LABS: BLOOD UREA NITROGEN,BUN 8 mg/dL (7.0-18.0); CARBON DIOXIDE,CO2 22.5 mmol/L (21.0-32.0); CHLORIDE,CL 105 mmol/L (98-107); GLUCOSE RANDOM 95 mg/dL (74-106); LIPASE 52 U/L (73-393); POTASSIUM,K 4.3 mmol/L (3.5-5.1); SODIUM,NA 139 mmol/L (136-145)
[2020-02-18] MEDS ORDERED: Morphine 2 MG/ML SYRINGE IVPUSH ONE (03:42)
[2020-02-18] MEDS ORDERED: Ondansetron 4 MG/2 ML SDV ONE (03:51)
[2020-02-18] MEDS ORDERED: Ondansetron 4 MG/2 ML SDV IVPUSH ONE (03:51)
--- NOTE | 2020-02-18 04:08 | CT ---
INDICATION: Right lower quadrant pain TECHNIQUE: CT abdomen and pelvis acquired without IV contrast. COMPARISON: None FINDINGS: Lower chest: Unremarkable. Liver: Unremarkable. Spleen: Unremarkable. Pancreas: Unremarkable. Gallbladder and bile ducts: Unremarkable. Adrenal glands: Unremarkable. Kidneys: Mild left hydronephrosis and hydroureter secondary to a 3 mm stone in the proximal left ureter. No additional left-sided collecting system stone identified. There is a 3 mm calcification at the right ureterovesical junction. Mild right hydronephrosis. There is also 3 mm stone in the right kidney. GI tract: Unremarkable. Appendix is normal. Vascular structures: Unremarkable. Lymph nodes: Unremarkable. Miscellaneous: Unremarkable. No free air or significant free fluid. Pelvic Organs: 1.7 cm partially calcified uterine fibroid. Bones: Unremarkable for age. IMPRESSION: Normal appendix. Mild right hydronephrosis secondary to a 3 mm calcification at the right ureterovesical junction. There is also a 3 mm stone in the right kidney. There is mild left hydronephrosis and hydroureter secondary to a 3 mm stone in the proximal left ureter. No additional left renal stone identified. Partially calcified uterine fibroid. Please note that all CT scans at this facility use dose modulation, iterative reconstruction, and/or weight-based dosing when appropriate to reduce radiation dose to as low as reasonably achievable. Dictated by Aleksandra Alvarez MD @ Feb 18 2020 4:07AM Signed by Dr. Aleksandra Alvarez @ Feb 18 2020 4:07AM
[2020-02-18 05:02] VITALS: BP 162/90; PULSE 82
== END 2020-02-18 05:03 | disposition home or self-care (01) ==
LOC: MW.ED 02:27
DX: N13.2 Hydronephrosis with renal and ureteral calculous obstruction (principal); N30.01 Acute cystitis with hematuria; F31.9 Bipolar disorder, unspecified; Z91.041 Radiographic dye allergy status; Z91.040 Latex allergy status; Z91.011 Allergy to milk products; Z91.09 Other allergy status, other than to drugs and biological substances; Z79.899 Other long term (current) drug therapy
CPT/HCPCS: 36415; 74176; 80053; 81001; 83605; 83690; 84703; 85025; 87086; 96374; 96375; 99284; J2270; J2405; J3010

== ENCOUNTER 2022-06-18 21:14 | Emergency (ER) | payer MEDICAID ==
[2022-06-18] MEDS ORDERED: Sodium Chloride 0.9% 1,000 ML IV ONE (21:27)
[2022-06-18] MEDS ORDERED: Albuterol/Ipratropium 3.0-0.5 MG/3 ML Neb Soln NEB ONE (21:28)
[2022-06-18] MEDS ORDERED: methylPREDNISolone Sod Succ 1,000 MG in Sodium Chloride 0.9% 16 ML IV ONE (21:28)
[2022-06-18] MEDS ORDERED: methylPREDNISolone Sodium Succinate 125 MG/2 ML SDV IVPUSH ONE (21:38)
[2022-06-18 21:57] LABS: CORONAVIRUS COVID-19 NAA NEGATIVE (NEGATIVE); INFLUENZA A NAA NEGATIVE (NEGATIVE); INFLUENZA B NAA NEGATIVE (NEGATIVE)
[2022-06-18 22:32] LABS: POTASSIUM,K 3.7 mmol/L (3.5-5.1)
[2022-06-19] MEDS ORDERED: fentaNYL 50 MCG/ML SDV IVPUSH ONE (00:50)
[2022-06-19] MEDS ORDERED: Albuterol 0.083% 2.5 MG/3 ML Neb Soln NEB ONE (01:21)
[2022-06-19 06:12] VITALS: BP 135/65; PULSE 82
== END 2022-06-19 06:09 | disposition home or self-care (01) ==
LOC: MW.ED 21:14
DX: J45.901 Unspecified asthma with (acute) exacerbation (principal); Z91.041 Radiographic dye allergy status; Z91.040 Latex allergy status; Z91.011 Allergy to milk products; Z91.048 Other nonmedicinal substance allergy status; Z79.899 Other long term (current) drug therapy; Z20.822 Contact with and (suspected) exposure to COVID-19
CPT/HCPCS: 0240U; 36415; 71045; 80053; 85025; 96361; 96374; 99284; J2930; J7030; J7620-GY

== ENCOUNTER 2022-08-20 19:42 | Emergency (ER) | payer OTHER, MEDICAID ==
[2022-08-20] MEDS ORDERED: Acetaminophen 325 MG Tab PO ONE (20:11)
[2022-08-20] MEDS ORDERED: Meclizine 25 MG Tab PO ONE (20:12)
[2022-08-20] MEDS ORDERED: Cefdinir 300 MG Cap PO ONE (21:25)
[2022-08-20] MEDS ORDERED: Ibuprofen 400 MG Tab PO ONE (21:26)
[2022-08-20 21:49] VITALS: BP 110/70; PULSE 82
== END 2022-08-20 21:48 ==
LOC: MW.ED 19:42
DX: R10.31 Right lower quadrant pain (principal); R10.32 Left lower quadrant pain; H61.23 Impacted cerumen, bilateral; Z91.040 Latex allergy status; Z91.011 Allergy to milk products; Z91.041 Radiographic dye allergy status; Z91.048 Other nonmedicinal substance allergy status
CPT/HCPCS: 81001; 81025; 87086; 93005; 99284; A9270; 93010; 99283

== ENCOUNTER 2023-06-09 16:29 | Emergency (ER) | payer OTHER, MEDICAID ==
[2023-06-09] MEDS ORDERED: Acetaminophen/HYDROcodone 325-5 MG Tab PO ONE (17:21)
[2023-06-09] MEDS ORDERED: LORazepam 1 MG Tab PO ONE (17:21)
[2023-06-09 17:49] VITALS: BP 122/89; PULSE 84
== END 2023-06-09 17:48 | disposition home or self-care (01) ==
LOC: MW.ED 16:29
DX: S06.0X0A Concussion without loss of consciousness, initial encounter (principal); M54.50 Low back pain, unspecified; Z79.899 Other long term (current) drug therapy; Z91.048 Other nonmedicinal substance allergy status; Z91.040 Latex allergy status; Z91.011 Allergy to milk products; Z91.041 Radiographic dye allergy status; V49.49XA Driver injured in collision with other motor vehicles in traffic accident, initial encounter; Y92.410 Unspecified street and highway as the place of occurrence of the external cause
CPT/HCPCS: 99283; A9270